=== PATIENT | male | born 1965 | race Caucasian/White ===

== ENCOUNTER 2019-08-17 07:09 | Outpatient (RCR) | payer BC ==
[2019-08-15 08:52] VITALS: BP 138/68
[2019-08-15 09:22] LABS: BASOPHILS % (AUTO) 0 % (0-10); EOSINOPHILS # (AUTO) 0.1 10^3/uL (0.0-0.3); EOSINOPHILS % (AUTO) 2 % (0-10); HEMATOCRIT 44 % (40-54); HEMOGLOBIN 15.2 G/DL (13.3-17.7); LYMPHOCYTES # (AUTO) 1.5 X 10^3 (1.0-4.0); LYMPHOCYTES % (AUTO) 27 % (12-44); MEAN CORPUSCULAR HEMOGLOBIN 30 PG (25-34); MEAN CORPUSCULAR HGB CONC 35 G/DL (32-36); MEAN CORPUSCULAR VOLUME 86 FL (80-99); MEAN PLATELET VOLUME 9.3 FL (7.4-10.4); MONOCYTES # (AUTO) 0.6 X 10^3 (0.0-1.0); MONOCYTES % (AUTO) 11 % (0-12); NEUTROPHILS # (AUTO) 3.3 X 10^3 (1.8-7.8); NEUTROPHILS % (AUTO) 60 % (42-75); PLATELET COUNT 181 10^3/uL (130-400); RED CELL DISTRIBUTION WIDTH 13.8 % (10.0-14.5); WHITE BLOOD COUNT 5.5 10^3/uL (4.3-11.0)
[2019-08-15 09:24] LABS: BILIRUBIN,URINE NEGATIVE (NEGATIVE); CLARITY,URINE CLEAR; COLOR,URINE YELLOW; GLUCOSE, URINE (UA) NEGATIVE (NEGATIVE); KETONES,URINE NEGATIVE (NEGATIVE); LEUKOCYTE ESTERASE ,URINE NEGATIVE (NEGATIVE); NITRITE,URINE NEGATIVE (NEGATIVE); PH,URINE 5.5 (5-9); PROTEIN,URINE NEGATIVE (NEGATIVE)
[2019-08-15 09:29] LABS: BACTERIA,URINE NEGATIVE /HPF
[2019-08-15 09:34] LABS: ALBUMIN 4.5 GM/DL (3.2-4.5); CHLORIDE 105 MMOL/L (98-107); POTASSIUM 4.5 MMOL/L (3.6-5.0)
[2019-08-15 09:35] LABS: SODIUM 139 MMOL/L (135-145)
[2019-08-15 09:36] LABS: CALCIUM 9.4 MG/DL (8.5-10.1)
[2019-08-15 09:37] LABS: GLUCOSE 114 MG/DL (70-105); INR 0.9 (0.8-1.4); PROTHROMBIN TIME PATIENT 12.5 SEC (12.2-14.7); TOTAL PROTEIN 7.1 GM/DL (6.4-8.2)
[2019-08-15 09:38] LABS: CARBON DIOXIDE 24 MMOL/L (21-32)
[2019-08-15 09:39] LABS: BILIRUBIN,TOTAL 0.5 MG/DL (0.1-1.0)
[2019-08-15 09:40] LABS: ALKALINE PHOSPHATASE 58 U/L (40-136); CREATININE SERUM 1.05 MG/DL (0.60-1.30); GFR ESTIMATED > 60
[2019-08-15 09:41] LABS: BUN/CREATININE RATIO 14
[2019-08-15 09:43] LABS: ALANINE AMINOTRANSFERASE 40 U/L (0-55)
[2019-08-15 09:49] LABS: ERYTHROCYTE SEDIMENTATION RATE 1 MM/HR (0-30)
--- NOTE | 2019-08-15 09:52 | Diagnostic Imaging Report ---
EXAMINATION: PA and lateral chest at 9:38 AM. INDICATION: Preop total knee. COMPARISON: There are no prior studies available for comparison. FINDINGS: The heart size is within normal limits. The lungs are clear. There is no evidence for failure, pneumonia, or pleural effusion. The mediastinum is not widened. The osseous structures are intact. IMPRESSION: There is no evidence for active disease. Dictated by: Dictated on workstation # [id number]
[~2019-08-17] VITALS: Ht 185 cm; Wt 124.5 kg
[~2019-08-17 07:09] MED LIST: LISI10TA2 PO; MULT-1136 PO; OMEG1CAP24 PO; ZINC50TA51 PO
== END 2019-08-17 15:48 | disposition home or self-care (01) ==
LOC: PREOP 07:09
PROVIDERS: ATTEND Orthopaedic Surgery
DX: Z01.810 Encounter for preprocedural cardiovascular examination (principal); Z01.811 Encounter for preprocedural respiratory examination; Z01.812 Encounter for preprocedural laboratory examination; Z11.2 Encounter for screening for other bacterial diseases; Z11.59 Encounter for screening for other viral diseases; M17.12 Unilateral primary osteoarthritis, left knee; R53.83 Other fatigue
CPT/HCPCS: 36415; 71046; 80053; 81000; 85025; 85610; 85652; 86850; 86900; 86901; 87081; 87635; 93005

== ENCOUNTER 2019-08-22 07:10 | Inpatient (IN) | payer BC ==
--- NOTE | 2019-08-13 13:03 | HISTORY AND PHYSICAL ---
DATE OF SERVICE: This will be for inpatient admission on 08/22/2019. The patient will require regular inpatient admission due to comorbidities, need for physical therapy, need for pain management and gait abnormalities. HISTORY OF PRESENT ILLNESS: The patient is a 54-year-old gentleman with complaints of progressively worsening left knee pain. He reports long-standing progressive symptoms. He has undergone treatment with arthroscopies as well as injections. He reports activity limitations because of the knee. He reports that the pain is interfering with his work activities as well as his activities of daily living. He also began to experience some contralateral hip pain due to the way he ambulates on his left knee. REVIEW OF SYSTEMS: No chest pain, no shortness of breath, no dysuria. PAST MEDICAL HISTORY: Unremarkable. PAST SURGICAL HISTORY: Bilateral knee arthroscopies and appendectomy. FAMILY HISTORY: Noncontributory. PRIMARY CARE PROVIDER: Dr. Siddiqui. MEDICATIONS: Zinc and fish oil. ALLERGIES: PENICILLIN. SOCIAL HISTORY: The patient formally chewed tobacco and he reports social alcohol consumption. RADIOGRAPHS: Reveal complete loss of medial joint space with moderate patellofemoral joint space narrowing. IMPRESSION: Severe left knee osteoarthritis. PHYSICAL EXAMINATION: GENERAL: The patient ambulates with an antalgic gait on the left. HEENT: Normocephalic, atraumatic. Pupils are equal, round, reactive to light. Oropharynx is clear. NECK: Supple, no lymphadenopathy. LUNGS: Clear to auscultation bilaterally. HEART: Regular rate and rhythm. ABDOMEN: Soft, nontender, nondistended. EXTREMITIES: The left knee demonstrates varus alignment. He is tender along his medial joint line, has pain medially with Eladia's. Range of motion 0/4/120. There is no varus valgus laxity. Negative anterior and posterior drawer. Negative straight leg raise. There is a moderate effusion noted with no erythema or warmth. IMPRESSION: Severe left knee osteoarthritis, unresponsive to conservative measures. PLAN: Left total knee arthroplasty. The risks, benefits, options, ramifications and recovery have been discussed at length with the patient. He understands and wishes to proceed. Job ID: [id number] DocumentID: [id number] Dictated Date: 08/13/2019 10:54:33 [employer] Date: 08/13/2019 12:03:04 Dictated By: FELY MUNOZ MD
[~2019-08-22] VITALS: Ht 185 cm; Wt 124.5 kg
[2019-08-22] VITALS (16 sets, daily range): BP systolic 95–149; BP diastolic 59–87
--- OUTSIDE RECORDS SUMMARY | 2019-08-22 07:16 | XMS REPORT | Clinical Summary ---
Author Author Maikel, Jose Luis Leigh [facility] Address Unknown Phone Unavailable Allergies, Adverse Reactions, Alerts Allergy Name Reaction Description Start Date Severity Status Pr ovider PCN Critical Active Kamlesh salinas DIESEL LOCOMOTIVE ENGINEER Conditions or Problems Problem Name Problem Code Onset Date Status Entry Date Provider Comment Standard Description Annotate Bronchitis 490 Resolved Chin Siddiqui MD Bronchitis, not specified as acute or chronic BMI 36-36.9 Active Chin Siddiqui MD Body Mass Index 36.0-36.9, adult Obesity Class II (BMI 35-39.9) 278.00 Active 05/29 Chin Siddiqui MD Obesity, unspecified Preoperative examination V72.84 Active Mar silvia Siddiqui MD Preoperative examination, unspecified Health screening V70.0 Active Chin Milian Routine general medical examination at a health care facility Elevated blood pressure without diagnosis of hypertension 796.2 Active Chin Siddiqui MD Elevated bloo d pressure reading without diagnosis of hypertension Bronchitis ICD-490 Inactive Chin Siddiqui MD 202 Medication List Medication Instructions Start Date Stop Date Generic Name NDC Status Provider Patient Instruction FISH OIL 1000 MG ORAL CAPSULE 1 po qd OMEGA- 3 FATTY ACIDS 75760506496 Active Chin Siddiqui MD Active GUAIFENESIN DM 400-20 MG ORAL TABLET 1 pill by mouth t wice daily, if needed for cough DEXTROMETHORPHAN-GUAIFENESIN 28978009230 No Longer Active Chin Siddiqui MD Active PREDNISONE 20 MG ORAL TABLET 2 tabs daily for 3 days, 1 tab daily for 3 days, 1/2 tab daily for 2 days PREDNISONE 88348380461 No Longer Active Kamlesh Rothman DIESEL LOCOMOTIVE ENGINEER Active AZITHROMYCIN 250 MG ORAL TABLET 2 po qd x 1 day, then 1 po q d x 4 days AZITHROMYCIN 85506503946 No Longer Active Rudyllina Manju balaji DIESEL LOCOMOTIVE ENGINEER Active GUAIFENESIN DM 400-20 MG ORAL TABLET 1 pill by mouth t wice daily, if needed for cough GUAIFENESIN DM 400-20 MG ORAL TABLET DEXTROMETHORPHAN-GUAIFENESIN Inactive AZITHROMYCIN 250 MG ORAL TABLET 2 po qd x 1 day, then 1 po q d x 4 days AZITHROMYCIN 250 MG ORAL TABLET [id number] AZITHROMY YAIMA Inactive PREDNISONE 20 MG ORAL TABLET 2 tabs daily for 3 days, 1 tab daily for 3 days, 1/2 tab daily for 2 days PREDNISONE 20 MG ORAL T ABLET [id number] PREDNISONE Inactive Vital Signs Date Name Value Unit Range Description blood pressure, diastolic, repeated by physician 86 BP durant blood pressure, diastolic 86 mm[Hg] BP durant blood pressure, systolic, repeated by physician 160 BP sys blood pressure, systolic 160 mm[Hg] BP sys height E&M 73 [in_us] Bdy height pulse rate E&M 81 /min Heart rate temperature E&M 98.4 [degF] Body temp erature weight E&M 279 [lb_av] Weight Measure d Diagnostic Results Date Name Value Unit Range Description Office Visit: surgery clearance 304 - Ch emistry HDL cholesterol, serum, target level 40 mg/dL cholesterol, target level 200 mg/dL triglyceride, target level 150 mg/dL Encounters Code Encounter Date Provider Facility CPT-66122 Level 3 Est. Patient 14:54:42 TECHNICAL DOCUMENTATION SPECIALIST Chin Siddiqui MD [facility] CPT-07497 Level 3 Est. Patient 10:14:09 TECHNICAL DOCUMENTATION SPECIALIST Kamlesh whittaker APRN [facility]
--- OUTSIDE RECORDS SUMMARY | 2019-08-22 07:16 | XMS REPORT | Clinical Summary ---
Author Author Jose Luis Ko [employer] Address Unknown Phone Unavailable Allergies, Adverse Reactions, Alerts Allergy Name Reaction Description Start Date Severity Status Pr ovider PCN Critical Active Kamlesh salinas UNDERWATER HUNTER TRAPPER Conditions or Problems Problem Name Problem Code [...] Generic Name NDC Status Provider Patient Instruction LISINOPRIL 10 MG ORAL TABLET 1 po qd LISINOPRIL 12168 559819 Active Chin Siddiqui MD Active FISH OIL 1000 MG ORAL CAPSULE 1 po qd OMEGA- 3 FATTY ACIDS 88150325598 Active Chin Siddiqui MD Active GUAIFENESIN DM 400-20 MG ORAL TABLET 1 pill by mouth t wice daily, if needed for cough DEXTROMETHORPHAN-GUAIFENESIN 03084656479 No Longer Active Chin Siddiqui MD Active PREDNISONE 20 MG ORAL TABLET 2 tabs daily for 3 days, 1 tab daily for 3 days, 1/2 tab daily for 2 days PREDNISONE 16191159857 No Longer Active Kamlesh Rothman UNDERWATER HUNTER TRAPPER Active AZITHROMYCIN 250 MG ORAL TABLET 2 po qd x 1 day, then 1 po q d x 4 days AZITHROMYCIN 01998320501 No Longer Active Rudyllina Manju balaji UNDERWATER HUNTER TRAPPER Active GUAIFENESIN DM 400-20 MG ORAL TABLET 1 pill by mouth t wice daily, if needed for cough GUAIFENESIN DM 400-20 MG ORAL TABLET DEXTROMETHORPHAN-GUAIFENESIN Inactive AZITHROMYCIN 250 MG ORAL TABLET 2 po qd x 1 day, then 1 po q d x 4 days AZITHROMYCIN 250 MG ORAL TABLET 486111 AZITHROMY YAIMA Inactive PREDNISONE 20 MG ORAL TABLET 2 tabs daily for 3 days, 1 tab daily for 3 days, 1/2 tab daily for 2 days PREDNISONE 20 MG ORAL T ABLET [id number] PREDNISONE Inactive Vital Signs Date Name Value [...] mg/dL Encounters Code Encounter Date Provider Facility CPT-94512 Level 3 Est. Patient 14:54:42 BRAKES INSPECTOR Chin Siddiqui MD [facility] CPT-78684 Level 3 Est. Patient 10:14:09 BRAKES INSPECTOR Kamlesh whittaker [facility]
--- OUTSIDE RECORDS SUMMARY | 2019-08-22 07:16 | XMS REPORT | Clinical Summary ---
Author Author Maikel, Jose Luis Leigh [facility] Address Unknown Phone Unavailable Allergies, Adverse Reactions, Alerts Allergy Name Reaction Description Start Date Severity Status Pr ovider PCN Critical Active Jillina Manjuzel l SUPERVISOR ASSEMBLY AND PACKING Conditions or Problems Problem Name Problem Code Onset Date Status Entry Date Provider Comment Standard Description Annotate Bronchitis 490 Active Jillina Frazell SUPERVISOR ASSEMBLY AND PACKING Bronchitis, not specified as acute or chronic Medication List Medication Instructions Start Date Stop Date Generic Name NDC Status Provider Patient Instruction GUAIFENESIN DM 400-20 MG ORAL TABLET 1 pill by mouth t wice daily, if needed for cough DEXTROMETHORPHAN-GUAIFENESIN 08802363924 Active Jillina Frazell SUPERVISOR ASSEMBLY AND PACKING Active PREDNISONE 20 MG ORAL TABLET 2 tabs daily for 3 days, 1 tab daily for 3 days, 1/2 tab daily for 2 days PREDNISONE 43392981869 Active Jillina Frazell SUPERVISOR ASSEMBLY AND PACKING Active AZITHROMYCIN 250 MG ORAL TABLET 2 po qd x 1 day, then 1 po q d x 4 days AZITHROMYCIN 76319615010 Active Jillina Frazell SUPERVISOR ASSEMBLY AND PACKING Active Vital Signs Date Name Value Unit Range Description blood pressure, diastolic 91 mm[Hg] BP durant blood pressure, systolic 127 mm[Hg] BP sys height E&M 73 [in_us] Bdy height pulse rate E&M 81 /min Heart rate temperature E&M 98.6 [degF] Body temp erature weight E&M 256 [lb_av] Weight Measure d Diagnostic Results Date Name Value Unit Range Description Lab Report: JOVANNI INFLUENZA A/B - [place] logy rapid flu test Negative Negative Encounters Code Encounter Date Provider Facility CPT-80445 Level 3 Est. Patient 10:14:09 STANDARD MACHINE STITCHER Kamlesh whittaker SUPERVISOR ASSEMBLY AND PACKING [facility]
--- OUTSIDE RECORDS SUMMARY | 2019-08-22 07:16 | XMS REPORT | Clinical Summary ---
Author Author Jose Luis Ko [employer] Address Unknown Phone Unavailable Allergies, Adverse Reactions, Alerts Allergy Name Reaction Description Start Date Severity Status Pr ovider PCN Critical Active Kamlesh salinas GASOLINE FINISHER Conditions or Problems Problem Name Problem Code [...] 1 po qd OMEGA- 3 FATTY ACIDS 04841707223 Active Chin Siddiqui MD Active GUAIFENESIN DM 400-20 MG ORAL TABLET 1 pill by mouth t wice daily, if needed for cough DEXTROMETHORPHAN-GUAIFENESIN 36915683542 No Longer Active Chin Siddiqui MD Active PREDNISONE 20 MG ORAL TABLET 2 tabs daily for 3 days, 1 tab daily for 3 days, 1/2 tab daily for 2 days PREDNISONE 70872993764 No Longer Active Kamlesh Rothman GASOLINE FINISHER Active AZITHROMYCIN 250 MG ORAL TABLET 2 po qd x 1 day, then 1 po q d x 4 days AZITHROMYCIN 95287563217 No Longer Active Rudyllina Manju balaji GASOLINE FINISHER Active GUAIFENESIN DM 400-20 MG ORAL TABLET 1 pill by mouth t wice daily, if needed for cough GUAIFENESIN DM 400-20 MG ORAL TABLET DEXTROMETHORPHAN-GUAIFENESIN Inactive AZITHROMYCIN 250 MG ORAL TABLET 2 po qd x 1 day, then 1 po q d x 4 days AZITHROMYCIN 250 MG ORAL TABLET 405430 AZITHROMY YAIMA Inactive PREDNISONE 20 MG ORAL TABLET 2 tabs daily for 3 days, 1 tab daily for 3 days, 1/2 tab daily for 2 days PREDNISONE 20 MG ORAL T ABLET [id number] PREDNISONE Inactive Vital Signs Date Name Value [...] mg/dL Encounters Code Encounter Date Provider Facility CPT-61567 Level 3 Est. Patient 14:54:42 INSIDE SALES MANAGER Chin Siddiqui MD [facility] CPT-13717 Level 3 Est. Patient 10:14:09 INSIDE SALES MANAGER Kamlesh whittaker APRN [facility]
--- OUTSIDE RECORDS SUMMARY | 2019-08-22 07:16 | XMS REPORT | Clinical Summary ---
Author Author Jose Luis Ko [facility] Address Unknown Phone Unavailable Allergies, Adverse Reactions, Alerts Allergy Name Reaction Description Start Date Severity Status Pr ovider PCN Critical Active Jillina Manjuzel l FREIGHT HUSTLER Conditions or Problems Problem Name Problem Code Onset Date Status Entry Date Provider Comment Standard Description Annotate Bronchitis 490 Active Jillina Frazell FREIGHT HUSTLER Bronchitis, not specified as acute or chronic Medication List Medication Instructions Start Date Stop Date Generic Name NDC Status Provider Patient Instruction GUAIFENESIN DM 400-20 MG ORAL TABLET 1 pill by mouth t wice daily, if needed for cough DEXTROMETHORPHAN-GUAIFENESIN 21617344989 Active Jillina Frazell FREIGHT HUSTLER Active PREDNISONE 20 MG ORAL TABLET 2 tabs daily for 3 days, 1 tab daily for 3 days, 1/2 tab daily for 2 days PREDNISONE 44914093874 Active Jillina Frazell FREIGHT HUSTLER Active AZITHROMYCIN 250 MG ORAL TABLET 2 po qd x 1 day, then 1 po q d x 4 days AZITHROMYCIN 93598533993 No Longer Active Jillina Fra balaji FREIGHT HUSTLER Active AZITHROMYCIN 250 MG ORAL TABLET 2 po qd x 1 day, then 1 po q d x 4 days AZITHROMYCIN 250 MG ORAL TABLET 526987 AZITHROMY YAIMA Inactive Vital Signs Date Name Value Unit [...] Negative Encounters Code Encounter Date Provider Facility CPT-00359 Level 3 Est. Patient 10:14:09 MANAGER HOSPITALITY Kamlesh whittaker [facility]
--- OUTSIDE RECORDS SUMMARY | 2019-08-22 07:16 | XMS REPORT | Clinical Summary ---
Author Author Jose Luis Ko [facility] Address Unknown Phone Unavailable Allergies, Adverse Reactions, Alerts Allergy Name Reaction Description Start Date Severity Status Pr ovider PCN Critical Active Kamlesh Thornton l SAMMY Conditions or Problems Problem Name Problem Code Onset Date Status Entry Date Provider Comment Standard Description Annotate Bronchitis 490 Active Kamlesh Rothman APRN Bronchitis, not specified as acute or chronic Medication List Medication Instructions Start Date Stop Date Generic Name NDC Status Provider Patient Instruction GUAIFENESIN DM 400-20 MG ORAL TABLET 1 pill by mouth t wice daily, if needed for cough DEXTROMETHORPHAN-GUAIFENESIN 04605155598 Active Kamlesh Rothman APRN Active PREDNISONE 20 MG ORAL TABLET 2 tabs daily for 3 days, 1 tab daily for 3 days, 1/2 tab daily for 2 days PREDNISONE 66142367202 Active Maryina Frayuril BLEACH MIXER Active AZITHROMYCIN 250 MG ORAL TABLET 2 po qd x 1 day, then 1 po q d x 4 days AZITHROMYCIN 88539878704 Active Kamlesh Thorntonl BLEACH MIXER Active Vital Signs Date Name Value Unit Range Description blood pressure, diastolic 91 mm[Hg] BP durant blood pressure, systolic 127 mm[Hg] BP sys height E&M 73 [in_us] Bdy height pulse rate E&M 81 /min Heart rate temperature E&M 98.6 [degF] Body temp erature weight E&M 256 [lb_av] Weight Measure d Encounters Code Encounter Date Provider Facility CPT-29286 Level 3 Est. Patient 10:14:09 CONRADO whittaker APRN [facility]
--- OUTSIDE RECORDS SUMMARY | 2019-08-22 07:16 | XMS REPORT | Clinical Summary ---
Author Author Jose Luis Ko [facility] Address Unknown Phone Unavailable Allergies, Adverse Reactions, Alerts Allergy Name Reaction Description Start Date Severity Status Pr ovider PCN Critical Active Jillina Manjuzel l YARN BLEACHING MACHINE OPERATOR Conditions or Problems Problem Name Problem Code Onset Date Status Entry Date Provider Comment Standard Description Annotate Bronchitis 490 Active Jillina Frazell YARN BLEACHING MACHINE OPERATOR Bronchitis, not specified as acute or chronic Medication List Medication Instructions Start Date Stop Date Generic Name NDC Status Provider Patient Instruction GUAIFENESIN DM 400-20 MG ORAL TABLET 1 pill by mouth t wice daily, if needed for cough DEXTROMETHORPHAN-GUAIFENESIN 02160995659 Active Jillina Frazell YARN BLEACHING MACHINE OPERATOR Active PREDNISONE 20 MG ORAL TABLET 2 tabs daily for 3 days, 1 tab daily for 3 days, 1/2 tab daily for 2 days PREDNISONE 01237946478 Active Jillina Frazell YARN BLEACHING MACHINE OPERATOR Active AZITHROMYCIN 250 MG ORAL TABLET 2 po qd x 1 day, then 1 po q d x 4 days AZITHROMYCIN 59811488067 Active Jillina Frazell YARN BLEACHING MACHINE OPERATOR Active Vital Signs Date Name Value Unit [...] Negative Encounters Code Encounter Date Provider Facility CPT-35533 Level 3 Est. Patient 10:14:09 CONTINUOUS IMPROVEMENT LEAD Kamlesh whittaker YARN BLEACHING MACHINE OPERATOR [facility]
--- OUTSIDE RECORDS SUMMARY | 2019-08-22 07:16 | XMS REPORT | Clinical Summary ---
Author Author Jose Luis Ko [employer] Address Unknown Phone Unavailable Allergies, Adverse Reactions, Alerts Allergy Name Reaction Description Start Date Severity Status Pr ovider PCN Critical Active Kamlesh salinas RESTRICTIVE PREPARATION OPERATOR Conditions or Problems Problem Name Problem [...] MG ORAL TABLET 1 po qd LISINOPRIL 42332 189680 Active Chin Siddiqui MD Active FISH OIL 1000 MG ORAL CAPSULE 1 po qd OMEGA- 3 FATTY ACIDS 46826760952 Active Chin Siddiqui MD Active GUAIFENESIN DM 400-20 MG ORAL TABLET 1 pill by mouth t wice daily, if needed for cough DEXTROMETHORPHAN-GUAIFENESIN 24020790292 No Longer Active Chin Siddiqui MD Active PREDNISONE 20 MG ORAL TABLET 2 tabs daily for 3 days, 1 tab daily for 3 days, 1/2 tab daily for 2 days PREDNISONE 67591611607 No Longer Active Kamlesh Rothman RESTRICTIVE PREPARATION OPERATOR Active AZITHROMYCIN 250 MG ORAL TABLET 2 po qd x 1 day, then 1 po q d x 4 days AZITHROMYCIN 69426135583 No Longer Active Rudyllina Manju balaji RESTRICTIVE PREPARATION OPERATOR Active GUAIFENESIN DM 400-20 MG ORAL TABLET 1 pill by mouth t wice daily, if needed for cough GUAIFENESIN DM 400-20 MG ORAL TABLET DEXTROMETHORPHAN-GUAIFENESIN Inactive AZITHROMYCIN 250 MG ORAL TABLET 2 po qd x 1 day, then 1 po q d x 4 days AZITHROMYCIN 250 MG ORAL TABLET 260903 AZITHROMY YAIMA Inactive PREDNISONE 20 MG ORAL TABLET 2 tabs daily for 3 days, 1 tab daily for 3 days, 1/2 tab daily for 2 days PREDNISONE 20 MG ORAL T ABLET 636030 PREDNISONE Inactive Vital Signs Date Name Value [...] mg/dL Encounters Code Encounter Date Provider Facility CPT-95559 Level 3 Est. Patient 14:54:42 AMMONIUM NITRATE CRYSTALLIZER Chin Siddiqui MD [facility] CPT-58981 Level 3 Est. Patient 10:14:09 AMMONIUM NITRATE CRYSTALLIZER Kamlesh whittaker [facility]
--- OUTSIDE RECORDS SUMMARY | 2019-08-22 07:16 | XMS REPORT | Clinical Summary ---
Author Author Jose Luis Ko [facility] [employer] Address Unknown Phone Unavailable Allergies, Adverse Reactions, Alerts Allergy Name Reaction Description Start Date Severity Status Pr ovider PCN Critical Active Jillina Manjuzel l HOT BILLET SHEAR OPERATOR Conditions or Problems Problem Name Problem Code Onset Date Status Entry Date Provider Comment Standard Description Annotate Bronchitis 490 Active Jillina Frazell HOT BILLET SHEAR OPERATOR Bronchitis, not specified as acute or chronic Medication List Medication Instructions Start Date Stop Date Generic Name NDC Status Provider Patient Instruction GUAIFENESIN DM 400-20 MG ORAL TABLET 1 pill by mouth t wice daily, if needed for cough DEXTROMETHORPHAN-GUAIFENESIN 21228495431 Active Jillina Frazell HOT BILLET SHEAR OPERATOR Active PREDNISONE 20 MG ORAL TABLET 2 tabs daily for 3 days, 1 tab daily for 3 days, 1/2 tab daily for 2 days PREDNISONE 23122947650 Active Jillina Frazell HOT BILLET SHEAR OPERATOR Active AZITHROMYCIN 250 MG ORAL TABLET 2 po qd x 1 day, then 1 po q d x 4 days AZITHROMYCIN 22855293147 Active Jillina Frazell HOT BILLET SHEAR OPERATOR Active Vital Signs Date Name Value [...] Negative Encounters Code Encounter Date Provider Facility CPT-80321 Level 3 Est. Patient 10:14:09 SEISMOLOGY TEACHER Kamlesh whittaker HOT BILLET SHEAR OPERATOR [facility]
--- OUTSIDE RECORDS SUMMARY | 2019-08-22 07:16 | XMS REPORT | Clinical Summary ---
Author Author Jose Luis Ko [employer] Address Unknown Phone Unavailable Allergies, Adverse Reactions, Alerts Allergy Name Reaction Description Start Date Severity Status Pr ovider PCN Critical Active Kamlesh salinas WET MILLING WHEEL OPERATOR Conditions or Problems Problem Name Problem [...] MG ORAL TABLET 1 po qd LISINOPRIL 04535 999015 Active Chin Siddiqui MD Active FISH OIL 1000 MG ORAL CAPSULE 1 po qd OMEGA- 3 FATTY ACIDS 77006415960 Active Chin Siddiqui MD Active GUAIFENESIN DM 400-20 MG ORAL TABLET 1 pill by mouth t wice daily, if needed for cough DEXTROMETHORPHAN-GUAIFENESIN 14608515428 No Longer Active Chin Siddiqui MD Active PREDNISONE 20 MG ORAL TABLET 2 tabs daily for 3 days, 1 tab daily for 3 days, 1/2 tab daily for 2 days PREDNISONE 71227677977 No Longer Active Kamlesh Rothman WET MILLING WHEEL OPERATOR Active AZITHROMYCIN 250 MG ORAL TABLET 2 po qd x 1 day, then 1 po q d x 4 days AZITHROMYCIN 60573722569 No Longer Active Rudyllina Manju balaji WET MILLING WHEEL OPERATOR Active GUAIFENESIN DM 400-20 MG ORAL TABLET 1 pill by mouth t wice daily, if needed for cough GUAIFENESIN DM 400-20 MG ORAL TABLET DEXTROMETHORPHAN-GUAIFENESIN Inactive AZITHROMYCIN 250 MG ORAL TABLET 2 po qd x 1 day, then 1 po q d x 4 days AZITHROMYCIN 250 MG ORAL TABLET 416263 AZITHROMY YAIMA Inactive PREDNISONE 20 MG ORAL TABLET 2 tabs daily for 3 days, 1 tab daily for 3 days, 1/2 tab daily for 2 days PREDNISONE 20 MG ORAL T ABLET 517811 PREDNISONE Inactive Vital Signs Date Name Value [...] mg/dL Encounters Code Encounter Date Provider Facility CPT-40500 Level 3 Est. Patient 14:54:42 EXECUTIVE ADMINISTRATOR Chin Siddiqui MD [facility] CPT-69898 Level 3 Est. Patient 10:14:09 EXECUTIVE ADMINISTRATOR Kamlesh whittaker [facility]
--- OUTSIDE RECORDS SUMMARY | 2019-08-22 07:16 | XMS REPORT | Clinical Summary ---
Author Author Jose Luis Ko [facility] Address Unknown Phone Unavailable Allergies, Adverse Reactions, Alerts Allergy Name Reaction Description Start Date Severity Status Pr ovider PCN Critical Active Jijingina Manjuzel l GLUING PRESSMAN Conditions or Problems Problem Name Problem Code Onset Date Status Entry Date Provider Comment Standard Description Annotate Bronchitis 490 Active Jillina Frazell GLUING PRESSMAN Bronchitis, not specified as acute or chronic Medication List Medication Instructions Start Date Stop Date Generic Name NDC Status Provider Patient Instruction GUAIFENESIN DM 400-20 MG ORAL TABLET 1 pill by mouth t wice daily, if needed for cough DEXTROMETHORPHAN-GUAIFENESIN 05781198378 Active Jillina Frazell GLUING PRESSMAN Active PREDNISONE 20 MG ORAL TABLET 2 tabs daily for 3 days, 1 tab daily for 3 days, 1/2 tab daily for 2 days PREDNISONE 96266654539 No Longer Active Jillina Frazell GLUING PRESSMAN Active AZITHROMYCIN 250 MG ORAL TABLET 2 po qd x 1 day, then 1 po q d x 4 days AZITHROMYCIN 72437709294 No Longer Active Jillina Fra balaji GLUING PRESSMAN Active AZITHROMYCIN 250 MG ORAL TABLET 2 po qd x 1 day, then 1 po q d x 4 days AZITHROMYCIN 250 MG ORAL TABLET 655820 AZITHROMY YAIMA Inactive PREDNISONE 20 MG ORAL TABLET 2 tabs daily for 3 days, 1 tab daily for 3 days, 1/2 tab daily for 2 days PREDNISONE 20 MG ORAL T ABLET 423198 PREDNISONE Inactive Vital Signs Date Name Value [...] Negative Encounters Code Encounter Date Provider Facility CPT-28744 Level 3 Est. Patient 10:14:09 LEAD ANDROID DEVELOPER Kamlesh whittaker [facility]
--- OUTSIDE RECORDS SUMMARY | 2019-08-22 07:16 | XMS REPORT | Clinical Summary ---
Author Author Jose Luis Ko [facility] Address Unknown Phone Unavailable Allergies, Adverse Reactions, Alerts Allergy Name Reaction Description Start Date Severity Status Pr ovider PCN Critical Active Jillina Manjuzel l SMOKING PIPE MAKER Conditions or Problems Problem Name Problem Code Onset Date Status Entry Date Provider Comment Standard Description Annotate Bronchitis 490 Active Jillina Frazell SMOKING PIPE MAKER Bronchitis, not specified as acute or chronic Medication List Medication Instructions Start Date Stop Date Generic Name NDC Status Provider Patient Instruction GUAIFENESIN DM 400-20 MG ORAL TABLET 1 pill by mouth t wice daily, if needed for cough DEXTROMETHORPHAN-GUAIFENESIN [id number] Active Jillina Frazell SMOKING PIPE MAKER Active PREDNISONE 20 MG ORAL TABLET 2 tabs daily for 3 days, 1 tab daily for 3 days, 1/2 tab daily for 2 days PREDNISONE 62231936524 Active Jillina Frazell SMOKING PIPE MAKER Active AZITHROMYCIN 250 MG ORAL TABLET 2 po qd x 1 day, then 1 po q d x 4 days AZITHROMYCIN 46278334963 No Longer Active Jillina Fra balaji SMOKING PIPE MAKER Active AZITHROMYCIN 250 MG ORAL TABLET 2 po qd x 1 day, then 1 po q d x 4 days AZITHROMYCIN 250 MG ORAL TABLET 214343 AZITHROMY YAIMA Inactive Vital Signs Date Name [...] Negative Encounters Code Encounter Date Provider Facility [id number] Level 3 Est. 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
--- OUTSIDE RECORDS SUMMARY | 2019-08-22 07:16 | XMS REPORT | Clinical Summary ---
Author Author Maikel, Jose Luis Leigh [facility] Address Unknown Phone Unavailable Allergies, Adverse Reactions, Alerts Allergy Name Reaction Description Start Date Severity Status Pr ovider PCN Critical Active Kamlesh salinas HELP DESK ADMINISTRATOR Conditions or Problems Problem Name Problem Code [...] 1 po qd OMEGA- 3 FATTY ACIDS [id number] Active Chin Siddiqui MD Active GUAIFENESIN DM 400-20 MG ORAL TABLET 1 pill by mouth t wice daily, if needed for cough DEXTROMETHORPHAN-GUAIFENESIN 58415416077 No Longer Active Chin Siddiqui MD Active PREDNISONE 20 MG ORAL TABLET 2 tabs daily for 3 days, 1 tab daily for 3 days, 1/2 tab daily for 2 days PREDNISONE 68802256913 No Longer Active Kamlesh Rothman HELP DESK ADMINISTRATOR Active AZITHROMYCIN 250 MG ORAL TABLET 2 po qd x 1 day, then 1 po q d x 4 days AZITHROMYCIN 32227169568 No Longer Active Rudyllina Manju balaji HELP DESK ADMINISTRATOR Active GUAIFENESIN DM 400-20 MG ORAL TABLET 1 pill by mouth t wice daily, if needed for cough GUAIFENESIN DM 400-20 MG ORAL TABLET DEXTROMETHORPHAN-GUAIFENESIN Inactive AZITHROMYCIN 250 MG ORAL TABLET 2 po qd x 1 day, then 1 po q d x 4 days AZITHROMYCIN 250 MG ORAL TABLET 886935 AZITHROMY YAIMA Inactive PREDNISONE 20 MG ORAL TABLET 2 tabs daily for 3 days, 1 tab daily for 3 days, 1/2 tab daily for 2 days PREDNISONE 20 MG ORAL T ABLET 534480 PREDNISONE Inactive Vital Signs Date Name Value [...] mg/dL Encounters Code Encounter Date Provider Facility [id number] Level 3 Est. Patient 14:54:42 PARTS PROFESSIONAL Chin Siddiqui MD [facility] CPT-30062 Level 3 Est. Patient 10:14:09 PARTS PROFESSIONAL Kamlesh whittaker APRN [facility]
--- OUTSIDE RECORDS SUMMARY | 2019-08-22 07:16 | XMS REPORT | Clinical Summary ---
Author Author Jose Luis Ko [employer] Address Unknown Phone Unavailable Allergies, Adverse Reactions, Alerts Allergy Name Reaction Description Start Date Severity Status Pr ovider PCN Critical Active Kamlesh salinas MATERIAL HANDLER FLOORPERSON Conditions or Problems Problem Name Problem Code [...] 1 po qd OMEGA- 3 FATTY ACIDS 41251159390 Active Chin Siddiqui MD Active GUAIFENESIN DM 400-20 MG ORAL TABLET 1 pill by mouth t wice daily, if needed for cough DEXTROMETHORPHAN-GUAIFENESIN 83653748659 No Longer Active Chin Siddiqui MD Active PREDNISONE 20 MG ORAL TABLET 2 tabs daily for 3 days, 1 tab daily for 3 days, 1/2 tab daily for 2 days PREDNISONE 55595553872 No Longer Active Kamlesh Rothman MATERIAL HANDLER FLOORPERSON Active AZITHROMYCIN 250 MG ORAL TABLET 2 po qd x 1 day, then 1 po q d x 4 days AZITHROMYCIN 16745494291 No Longer Active Rudyllina Manju balaji MATERIAL HANDLER FLOORPERSON Active GUAIFENESIN DM 400-20 MG ORAL TABLET 1 pill by mouth t wice daily, if needed for cough GUAIFENESIN DM 400-20 MG ORAL TABLET DEXTROMETHORPHAN-GUAIFENESIN Inactive AZITHROMYCIN 250 MG ORAL TABLET 2 po qd x 1 day, then 1 po q d x 4 days AZITHROMYCIN 250 MG ORAL TABLET 272950 AZITHROMY YAIMA Inactive PREDNISONE 20 MG ORAL TABLET 2 tabs daily for 3 days, 1 tab daily for 3 days, 1/2 tab daily for 2 days PREDNISONE 20 MG ORAL T ABLET 481425 PREDNISONE Inactive Vital Signs Date Name Value [...] mg/dL Encounters Code Encounter Date Provider Facility CPT-84322 Level 3 Est. Patient 14:54:42 PLANNING CONSULTANT Chin Siddiqui MD [facility] CPT-44246 Level 3 Est. Patient 10:14:09 PLANNING CONSULTANT Kamlesh whittaker APRN [facility]
--- OUTSIDE RECORDS SUMMARY | 2019-08-22 07:17 | XMS REPORT | Clinical Summary ---
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 LAW CLERK Conditions or Problems Problem Name Problem Code Onset Date Status Entry Date Provider Comment Standard Description Annotate Bronchitis 490 Active Jillina Frazell FEDERAL APPELLATE LAW CLERK Bronchitis, not specified as acute or chronic Medication List Medication Instructions Start Date Stop Date Generic Name NDC Status Provider Patient Instruction GUAIFENESIN DM 400-20 MG ORAL TABLET 1 pill by mouth t wice daily, if needed for cough DEXTROMETHORPHAN-GUAIFENESIN 66612561480 Active Jillina Frazell FEDERAL APPELLATE LAW CLERK Active PREDNISONE 20 MG ORAL TABLET 2 tabs daily for 3 days, 1 tab daily for 3 days, 1/2 tab daily for 2 days PREDNISONE 79722978475 Active Jillina Frazell FEDERAL APPELLATE LAW CLERK Active AZITHROMYCIN 250 MG ORAL TABLET 2 po qd x 1 day, then 1 po q d x 4 days AZITHROMYCIN 06032856086 Active Jillina Frazell FEDERAL APPELLATE LAW CLERK Active Vital Signs Date Name Value Unit [...] Negative Encounters Code Encounter Date Provider Facility CPT-18265 Level 3 Est. 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
--- OUTSIDE RECORDS SUMMARY | 2019-08-22 07:17 | XMS REPORT ---
Author Jose Luis Roman Organization [facility] Address [address] [place], [place] [address] Care Team Providers Care Rate Inserter Name Role Phone Kamlesh Rothman PCP Unavailable Allergies and Adverse Reactions Name Reaction Notes PENICILLINS Plan of Treatment Not available. Medications Active Name Start Date Estimated Completion Date SIG Co mments zinc 50 mg oral tablet take 1 tablet by o ral route Fish Oil oral simvastatin 10 mg oral tablet 11/28/2018 05/27/2019 ta ke 1 tablet (10 mg) by oral route once daily in the evening for 90 days phentermine 37.5 mg oral tablet 01/02/2019 take 1/2 to 1 tab po q am, 30 min prior to breakfast Name Start Date Expiration Date SIG Comments clindamycin HCl 300 mg oral capsule 11/07/2018 11/14/2018 take 1 capsule (300 mg) by oral route 2 times per day for 7 days azithromycin 250 mg oral tablet 01/02/2019 01/07/2019 take 2 tablets (500 mg) by oral route once daily for 1 day then 1 tablet (250 mg) by oral route once daily for 4 days Problem List Not available. Vital Signs Date Time BP-Sys(mm[Hg] BP-Yuliet(mm[Hg]) HR(bpm) RR(rpm) Temp WT HT HC BMI BSA BMI Percentile O2 Sat(%) 01/02/2019 8:58:00 AM 138 mm[Hg] 92 mm[Hg] 76 {beats}/min 16 rpm 97.7 F 265.125 lbs 73 in 34.9787 kg/m2 2.4888 m2 97 % 11/07/2018 6:02:00 PM 148 mm[Hg] 82 mm[Hg] 78 {beats}/min 16 rpm 99 F 277 lbs 73 in 36.55 kg/m2 2.54 m2 95 % Social History Name Description Comments Tobacco History of Procedures Date Ordered Description Order Status 10/30/2018 12:00 AM THER/PROPH/DIAG INJ SC/IM Reviewed 10/30/2018 12:00 AM TDAP VACCINE 7 YRS/> IM Reviewed 12/01/2018 12:00 AM GLYCOSYLATED HEMOGLOBIN TEST Returned 12/01/2018 12:00 AM COMPREHEN METABOLIC PANEL Returned 12/01/2018 12:00 AM ROUTINE VENIPUNCTURE Reviewed 11/25/2018 12:00 AM ROUTINE VENIPUNCTURE Reviewed 11/25/2018 12:00 AM COMPLETE CBC W/AUTO DIFF WBC Returned 11/25/2018 12:00 AM COMPREHEN METABOLIC PANEL Returned 11/25/2018 12:00 AM ASSAY OF TOTAL THYROXINE Returned 11/25/2018 12:00 AM ASSAY OF THYROID (T3 OR T4) Returned 11/25/2018 12:00 AM LIPID PANEL Returned 11/25/2018 12:00 AM URNLS DIP STICK/TABLET RGNT AUTO W/O ALON ROSCOPY Returned 01/13/2019 12:00 AM FLU VAC NO PRSV 4 HECTOR 3 YRS+ Reviewed 01/13/2019 12:00 AM THER/PROPH/DIAG INJ SC/IM Reviewed Results Summary Not available. 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 07 2018 6:09PM Obesity Nov 25 2018 7:44AM Weight loss counseling, encounter for Nov 25 2018 7:44AM Routine adult health maintenance Nov 25 2018 7:44AM Hyperglycemia Nov 27 2018 8:36PM Creatinine elevation Nov 27 2018 8:36PM HTN (hypertension) Dec 01 2018 7:00PM Hyperlipidemia Dec 01 2018 7:00PM Obesity Dec 01 2018 7:00PM URI (upper respiratory infection) Jan 02 2019 9:04AM Weight loss counseling, encounter for Jan 02 2019 9:04AM Flu Vaccine Jan 13 2019 10:49AM Payers Insurance Name Company Name Plan Name Plan Number Policy Number Papi cy Group Number [id number] N/ A History of Encounters Visit Date Visit Type Provider 01/13/2019 Nurse visit Kamlesh White PRN 01/02/2019 Office visit Kamlesh White PRN 12/01/2018 Laboratory Kamlesh White PRN 11/25/2018 Laboratory Kamlesh White PRN 11/07/2018 Office visit Bladimir Morales NP 10/30/2018 Nurse visit Kamlesh White PRN
--- OUTSIDE RECORDS SUMMARY | 2019-08-22 07:17 | XMS REPORT ---
Author Author Jose Luis Rothman Organization [facility] Address [address] [place], [place] [address] Care Team Providers Care Route Delivery Service Driver Name Role Phone Kamlesh Rothman PCP Unavailable Allergies and Adverse Reactions Name Reaction Notes PENICILLINS Plan of Treatment Planned Activity Comments Planned Date Planned Time Plan/Goal HGB A1C 11/27/2018 12:00 AM CMP 11/27/2018 12:00 AM Medications Active Name Start Date Estimated Completion Date SIG Co mments zinc 50 mg oral tablet take 1 tablet by o ral route Fish Oil oral Name Start Date Expiration Date SIG Comments clindamycin HCl 300 mg oral capsule 11/07/2018 11/14/2018 take 1 capsule (300 mg) by oral route 2 times per day for 7 days Problem List Not available. Vital Signs Date Time BP-Sys(mm[Hg] BP-Yuliet(mm[Hg]) HR(bpm) RR(rpm) Temp WT HT HC BMI BSA BMI Percentile O2 Sat(%) 11/07/2018 6:02:00 PM 148 mmHg 82 mmHg 78 bpm 16 rpm 99 F 277 lbs 73 in 36.5454 kg/m 2.5439 m 95 % Social History Name Description Comments Tobacco History of Procedures Date Ordered Description Order Status 10/30/2018 12:00 AM THER/PROPH/DIAG INJ SC/IM Reviewed 10/30/2018 12:00 AM TDAP VACCINE 7 YRS/> IM Reviewed 11/25/2018 12:00 AM ROUTINE VENIPUNCTURE Reviewed 11/25/2018 12:00 AM COMPLETE CBC W/AUTO DIFF WBC Returned 11/25/2018 12:00 AM COMPREHEN METABOLIC PANEL Returned 11/25/2018 12:00 AM ASSAY OF TOTAL THYROXINE Returned 11/25/2018 12:00 AM ASSAY OF THYROID (T3 OR T4) Returned 11/25/2018 12:00 AM LIPID PANEL Returned 11/25/2018 12:00 AM URNLS DIP STICK/TABLET RGNT AUTO W/O ALON ROSCOPY Returned 11/27/2018 12:00 AM ROUTINE VENIPUNCTURE Reviewed Results Summary Not available. 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
--- OUTSIDE RECORDS SUMMARY | 2019-08-22 07:17 | XMS REPORT ---
Author Author Jose Luis Rothman Organization [facility] Address [address] [place], [place] [address] Care Team Providers Care President Commercial Bank Name Role Phone Kamlesh Rothman PCP Unavailable Allergies and Adverse Reactions Name Reaction Notes PENICILLINS Plan of Treatment Planned Activity Comments Planned Date Planned Time Plan/Goal HGB A1C 12/01/2018 12:00 AM CMP 12/01/2018 12:00 AM Medications Active Name Start Date [...] STICK/TABLET RGNT AUTO W/O ALON ROSCOPY Returned 12/01/2018 12:00 AM ROUTINE VENIPUNCTURE Reviewed Results Summary Not available. History Of Immunizations Name Date Admin Mfg Name Mfg Code Trade Name Lot# Route Inj Vis Given Vis Pub CVX Tdap 10/30/2018 GlaxBit Cauldron SKB BOOSTRIX [id number] Intramuscular Left Deltoid 10/30/2018 [...] Number Papi cy Group [id number]/ A History of Encounters Visit Date Visit Type Provider 11/25/2018 Laboratory Kamlesh EDGE 11/07/2018 Office visit Bladimir Morales NP 10/30/2018 Nurse visit Kamlesh EDGE
--- OUTSIDE RECORDS SUMMARY | 2019-08-22 07:17 | XMS REPORT ---
Author Jose Luis Roman [facility] Address [address] [place], [place] [address] Care Team Providers Care Warehouse Packaging Supervisor Name Role Phone Kamlesh Rothman PCP Unavailable Allergies and Adverse Reactions Not available. Plan of Treatment Planned Activity Comments Planned Date Planned Time Plan/Goal Tdap Vaccine 7 yrs & older 10/30/2018 12:00 AM Medications Not available. Problem List Not available. Vital Signs Not available. Social History Not available. History of Procedures Date Ordered Description Order Status 10/30/2018 12:00 AM THER/PROPH/DIAG INJ SC/IM Reviewed Results Summary Not available. History Of Immunizations Not available. History of Past Illness Name Date of Onset Comments Encounter for administration of vaccine Oct 30 2018 10:15AM Payers Insurance Name Company Name Plan Name Plan Number Policy Number Papi cy Group Number [id number]/ A History of Encounters Visit Date Visit Type Provider 10/30/2018 Nurse visit Kamlesh EDGE
--- OUTSIDE RECORDS SUMMARY | 2019-08-22 07:17 | XMS REPORT ---
Author Author Jose Luis Morales Organization [facility] Address [address] [place], [place] [address] Care Team Providers Care Sales Systems Engineer Name Role Phone Bladimir Morales PCP Allergies and Adverse Reactions Name Reaction Notes PENICILLINS Plan of Treatment Planned Activity Comments Planned Date Planned Time Plan/Goal CBC W/ AUTO DIFF (RFLX MAN DIFF IF IND). 11/25/2018 12:00 AM CMP 11/25/2018 12:00 AM Thyroid function panel 11/25/2018 12:00 AM Thyroid function panel 11/25/2018 12:00 AM LIPID PANEL 11/25/2018 12:00 AM URINALYSIS ROUTINE C&S IF IND 11/25/2018 12:00 AM Medications Active Name Start Date [...] Reviewed 11/25/2018 12:00 AM ROUTINE VENIPUNCTURE Reviewed Results Summary Not available. 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 [id number] N/ A History of Encounters Visit Date Visit Type Provider 11/07/2018 Office visit Bladimir Morales NP 10/30/2018 Nurse visit Kamlesh EDGE
--- OUTSIDE RECORDS SUMMARY | 2019-08-22 07:17 | XMS REPORT ---
Author Author Jose Luis Rothman Organization [facility] Address [address] [place], [place] [address] Care Team Providers Care Destination Imagination Coordinator Name Role Phone Kamlesh Rothman PCP Unavailable [...] daily in the evening for 90 days Name Start Date Expiration Date SIG Comments [...] W/O ALON ROSCOPY Returned 12/01/2018 12:00 AM GLYCOSYLATED HEMOGLOBIN TEST Returned 12/01/2018 12:00 AM COMPREHEN METABOLIC PANEL Returned 12/01/2018 12:00 AM ROUTINE VENIPUNCTURE Reviewed Results Summary Not available. History Of Immunizations Name Date Admin Mfg Name Mfg Code Trade Name Lot# Route Inj Vis Given Vis Pub CVX Tdap 10/30/2018 GlaxRentColumn Communications SKB BOOSTRIX [id number] Intramuscular Left Deltoid 10/30/2018 04/11/2019 115 History of Past Illness Name Date [...] 2018 7:00PM Obesity Dec 01 2018 7:00PM Payers Insurance Name Company Name Plan Name Plan Number Policy Number Papi cy Group Number Start Date BCBS [facility] [id number] N/ A History of Encounters Visit Date Visit Type Provider 12/01/2018 Laboratory Kamlesh White PRN 11/25/2018 Laboratory Kamlesh White PRN 11/07/2018 Office visit Bladimir Morales NP 10/30/2018 Nurse visit Kamlesh White PRN
--- OUTSIDE RECORDS SUMMARY | 2019-08-22 07:17 | XMS REPORT ---
Author Author Jose Luis Morales [facility] Address [address] [place], [place] [address] Care Team Providers Care Survey Researcher Name Role Phone Bladimir Morales PCP Allergies and Adverse Reactions Name Reaction Notes PENICILLINS Plan of Treatment Not available. Medications Active Name Start Date Estimated Completion Date SIG Co mments zinc 50 mg oral tablet take 1 tablet by o ral route Fish Oil oral clindamycin HCl 300 mg oral capsule 11/07/2018 [...] AM TDAP VACCINE 7 YRS/> IM Reviewed Results Summary Not available. 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
--- NOTE | 2019-08-22 07:28 | Progress Note-Pre Operative ---
Pre-Operative Progress Note H&P Reviewed The H&P was reviewed, patient examined and no changes noted. Date Seen by Provider: August 22, 2019 Time Seen by Provider: :28 Date H&P Reviewed: August 22, 2019 Time H&P Reviewed: : Pre-Operative Diagnosis: left knee primary osteoarthritis FELY MUNOZ MD August 22, 2019 07:28
--- NOTE | 2019-08-22 07:29 | Progress Note-Post Operative ---
Post-Operative Progess Note Surgeon (s)/Party Plan Dealer (s) Surgeon FELY MUNOZ MD Party Plan Dealer: Tyson Urena Pre-Operative Diagnosis left knee primary osteoarthritis Post-Operative Diagnosis left knee primary osteoarthritis Procedure & Operative Findings Date of Procedure 08/22/19 Procedure Performed/Findings left total knee arthroplasty Anesthesia Type spinal Estimated Blood Loss Estimated blood loss (mL): minimal Specimens/Packing Specimens Removed none Packing: none FELY MUNOZ MD August 22, 2019 07:29
[2019-08-22] MEDS ORDERED: ACETAMINOPHEN 325 MG TABLET PO PRN (07:30)
[2019-08-22] MEDS ORDERED: OXYC1TAB87 PO (07:30)
[2019-08-22] MEDS ORDERED: CEFUROXIME INJECTION 1,500 MG in WATER (STERILE) FOR INJECTION 15 ML IV ONE (07:30)
--- NOTE | 2019-08-22 07:32 | D/C HH Face to Face Order ---
D/C Face to Face Orders Reconcile Patient Problems Problems Reviewed?: Yes Instructions for Patient [facility], Patient Instructions/FollowUp: three weeks Physician to follow Patient: three weeks Discharge Diet for Home: Regular Diet Patient Data-Allergies,Ht & Wt Patient Allergies: Coded Allergies: Penicillins (Verified Allergy, Unknown, FROM CHILDHOOD, 08/15/19) Home Health Need/Face to Face Date of Face to Face: August 22, 2019 Clinical Findings: Instability, Muscle weakness, Pain with ambulation, Unsteady gait I have seen Pt [id number]: Yes Discharged To: Home Diagnosis/Conditions: left total knee arthroplasty Patient is Homebound due to: Ronald fall risk due to instabilty, Muscle weakness, Pain w/ambulation Homebound Status Due to the above stated illness, injury or surgical procedure (medical condition or diagnosis) and associated clinical findings, the patient is home bound because of his/her inability to leave home except with aid of a supportive device and/or person AND leaving the home requires a considerable and taxing effort or is medically contraindicated. Pt req the following assistanc: [facility] Nursing Orders Home Health Services Order: Physical Therapy-Evaluate & Treat DC left knee whit and apply steri strips 09/05/19 Therapy Orders Therapy Orders: Physical Therapy, PT to assess for OT Therapy Specific Orders: Eval assistive deivces, Teach enviro modifications/safety, Gait training, Increase strength/endurance, Provider maintenance therapy, Restore ROM Certify Stmt I certify that this patient is under my care and that I, a nurse practitioner or a physician; a marketing communications assistant working with me, had a face to face encounter that - meets the physician face to face encounter requirements with this patient as dated. FELY MUNOZ MD August 22, 2019 07:32
[2019-08-22] MEDS ORDERED: INTRA-ARTICULAR IU ONE ×5 (07:45)
[2019-08-22] MEDS ORDERED: proPOfol 200 MG/20 ML (DIPRIVAN) VIAL IV ONE (08:24)
[2019-08-22] MEDS ORDERED: MIDAZOLAM 2 MG/2 ML (VERSED) VIAL ONE ×2 (08:24→09:32)
[2019-08-22] MEDS ORDERED: fentaNYL INJECTION 100 MCG/2 ML AMP ONE (08:26)
[2019-08-22] MEDS ORDERED: LIDOCAINE PF 2% 5 ML (XYLOCAINE) VIAL ONE ×2 (08:31→09:53)
[2019-08-22] MEDS: LACTATED RINGERS 1,000 ML IV PRN ×2 (08:33→09:30)
[2019-08-22 08:42] LABS: BASOPHILS % (AUTO) 0 % (0-10); EOSINOPHILS # (AUTO) 0.2 10^3/uL (0.0-0.3); EOSINOPHILS % (AUTO) 3 % (0-10); HEMATOCRIT 44 % (40-54); HEMOGLOBIN 15.2 G/DL (13.3-17.7); LYMPHOCYTES # (AUTO) 1.3 X 10^3 (1.0-4.0); LYMPHOCYTES % (AUTO) 22 % (12-44); MEAN CORPUSCULAR HEMOGLOBIN 30 PG (25-34); MEAN CORPUSCULAR HGB CONC 35 G/DL (32-36); MEAN CORPUSCULAR VOLUME 86 FL (80-99); MEAN PLATELET VOLUME 9.3 FL (7.4-10.4); MONOCYTES # (AUTO) 0.6 X 10^3 (0.0-1.0); MONOCYTES % (AUTO) 10 % (0-12); NEUTROPHILS # (AUTO) 3.9 X 10^3 (1.8-7.8); NEUTROPHILS % (AUTO) 65 % (42-75); PLATELET COUNT 185 10^3/uL (130-400); RED CELL DISTRIBUTION WIDTH 13.5 % (10.0-14.5); WHITE BLOOD COUNT 6.1 10^3/uL (4.3-11.0)
[2019-08-22] MEDS ORDERED: diphenhydrAMINE 50 MG/ML INJ (BENADRYL) IVP PRN (09:15)
[2019-08-22] MEDS ORDERED: morphine PCA 100 MG/100 ML BAG IV PRN (09:15)
[2019-08-22] MEDS ORDERED: ONDANSETRON 4 MG/2 ML (SDV) Z0FRAN IVP PRN ×2 (09:15→11:30)
[2019-08-22] MEDS ORDERED: TRANEXAMIC ACID 100 MG/ML 10 ML INJECTION IV ONE (09:35)
[2019-08-22] MEDS ORDERED: BUPIVACAINE 0.5% 30 ML (SENSORCAINE) VIAL ONE (09:53)
[2019-08-22] MEDS ORDERED: PROPOFOL INJECTION 100 ML IV ONE (11:04)
[2019-08-22] MEDS ORDERED: HYDROmorphone 2 MG/ML VIAL (DILAUDID) IV ONE (11:30)
--- NOTE | 2019-08-22 12:19 | Diagnostic Imaging Report ---
INDICATION: Left knee pain. FINDINGS: Two views of the left knee show postop changes from joint arthroplasty. There is no evidence of loosening. There is no acute fracture. IMPRESSION: Good alignment of the left knee following joint arthroplasty. Dictated by: Dictated on workstation # [id number]
[2019-08-22] MEDS: NS IV 1000 ML 1,000 ML IV SCH ×2 (13:00→23:45)
[2019-08-22] MEDS: SENNA W/DOCUSATE (SENOKOT S) TABLET PO SCH ×2 (13:00→20:58)
--- NOTE | 2019-08-22 13:02 | Progress Note ---
Standard Progress Note Progress Notes/Assess & Plan Date Seen by a Provider: August 22, 2019 Time Seen by a Provider: 11:25 Progress/Assessment & Plan post op check non complaints Radiographs--HW well positioned without fracture LLE--block in effect. 2 plus DP pulse with brisk cap refill s/p LTKA mobilize when able FELY MUNOZ MD August 22, 2019 13:02
--- NOTE | 2019-08-22 13:56 | Physical Therapy Evaluation ---
PT Evaluation-General Medical Diagnosis Admission Date August 22, 2019 at 07:10 Medical Diagnosis: (L) TKA Onset Date: August 22, 2019 Therapy Diagnosis Therapy Diagnosis: difficulty walking Precautions Precautions/Isolations: Standard Precautions Weight Bear Status Full Weight Bearing Weight Bearing/Tolerated Referral Physician: Pankaj Reason for Referral: Evaluation/Treatment Prior Prior Level of Function SCALE: Activities may be completed with or without assistive devices. 2-Uwxqovlnas-kshgrez completes the activity by him/herself with no assistance from a helper. 5-Set-up or Clean-up Assistance-helper sets up or cleans up; patient completes activity. [place] assists only prior to or following the activity. 4-Supervision or Touching Assistance-helper provides verbal cues and/or touching/steadying and/or contact guard assistance as patient completes activity. Assistance may be provided throughout the activity or intermittently. 3-Partial/Moderate Assistance-helper does LESS THAN HALF the effort. [place] lifts, holds or supports trunk or limbs, but provides less than half the effort. 2-Substantial/Maximal Assistance-helper does MORE THAN HALF the effort. [place] lifts or holds trunk or limbs and provides more than half the effort. 0-Ubyeujgyj-ffuqom does ALL the effort. Patient does none of the effort to complete the activity. Or, the assistance of 2 or more helpers is required for the patient to complete the activity. If activity was not attempted, code reason: 7-Patient Refused. 9-Not Applicable-not attempted and the patient did not perform the activity before the current illness, exacerbation or injury. 10-Not Attempted due to Environmental Limitations-(lack of equipment, weather restraints, etc.). 88-Not Attempted due to Medical Conditions or Safety Concerns. Bed Mobility: 6 Transfers (B,C,W/C): 6 Gait: 6 Stairs: 6 Indoor Mobility (Ambulation): Independent Stairs: Independent Prior Devices Use: None PT Evaluation-Current Subjective States that he is doing well and not having any pain. Pain Numeric Pain Scale: 0-No Pain ROM/Strength ROM Lower Extremities 5 - 55 degrees of (L) knee AAROM Integumentary/Posture Bowel Incontinence: No Bladder Incontinence: No Transfers Roll Left to Right (QC): 5 Sit to Lying (QC): 5 Lying to Sitting/Side of Bed(Q: 5 Sit to Stand (QC): 5 Gait Does the Patient Walk?: Yes Mode of Locomotion: Walk Anticipated Mode of Locomotion: Walk Walk 10 feet (QC): 88 Walk 50 ft with 2 Turns(QC): 88 Walk 150 ft (QC): 88 Walking 10ft/uneven surface-QC: 88 Distance: 0' Gait Assistive Device: FWW Comments/Gait Description Patient had significant (L) LE instability secondary to block Balance Sitting Static: Fair Sitting Dynamic: Normal Standing Static: Fair Assessment/Needs 54 y.o. male with a diagnosis of (L) TKA. The patient has functional mobility limitations secondary to pain and weakness. He should do well with skilled therapy. Rehab Potential: Good PT Short Term Goals Short Term Goals Time Frame: August 25, 2019 Roll Left & Right: 6 Sit to lyin Lying to sitting on side of be: 6 Sit to stand: 6 Chair/fxr-di-dbmay transfer: 6 Toilet transfer: 6 Car transfer: 6 Walk 10 feet: 5 Walk 50 feet with two turns: 5 Walk 150 feet: 5 1 step (curb): 5 PT Neurology Physician Assistant Goals Fpc Goals PT Neurology Physician Assistant Goals Time Frame: August 29, 2019 Roll Left & Right (QC): 6 Sit to Lying (QC): 6 Lying-Sitting on Side/Bed(QC): 6 Sit to Stand (QC): 6 Chair/Fmn-ck-Hotwp Xfer(QC): 6 Toilet Transfer (QC): 6 Car Transfer (QC): 6 Does the Patient Walk: Yes Walk 10 feet (QC): 6 Walk 50ft with 2 Turns (QC): 6 Walk 150 ft (QC): 6 Walking 10ft on Uneven Surface: 6 1 Step (curb) (QC): 6 4 Steps (QC): 6 PT Plan Problem List Problem List: Activity Tolerance, Functional Strength, Safety, Balance, Gait, Transfer, Bed Mobility, ROM Treatment/Plan Treatment Plan: Continue Plan of Care Treatment Plan: Bed Mobility, Functional Activity Bubba, Functional Strength, Gait, Safety, Therapeutic Exercise, Transfers Treatment Duration: August 29, 2019 Frequency: 11 times per week Estimated Hrs Per Day: 1 hour per day Safety Risks/Education Patient Education: Gait Training, Transfer Techniques Teaching Recipient: Patient Teaching Methods: Demonstration, Discussion Response to Teaching: Verbalize Understanding Time/GCodes Time In: 1310 Time Out: 1335 Total Billed Treatment Time: 25 Total Billed Treatment 1, EV low complexity x 25 RIKKI GALO PT August 22, 2019 13:56
[2019-08-22] MEDS: oxyCODONE/APAP 5/325MG (PERCOCET 5) TABLET PO PRN ×4 (14:03→23:42)
--- NOTE | 2019-08-22 14:19 | OPERATIVE REPORT ---
DATE OF SERVICE: 08/22/2019 PREOPERATIVE DIAGNOSIS: Left knee primary osteoarthritis. POSTOPERATIVE DIAGNOSIS: Left knee primary osteoarthritis. PROCEDURE: Left total knee arthroplasty. SURGEON: Jordan Munoz MD RETAIL SALES ASSOCIATE BILINGUAL: Tyson Key, who assisted throughout the procedure and closed the incisions. ANESTHESIA: Spinal by Glenis Faust CRNA. TOURNIQUET TIME: Approximately 80 minutes at 300 mmHg. ESTIMATED BLOOD LOSS: Minimal. DRAINS: None. COMPLICATIONS: None. POSTOPERATIVE PLAN: Routine total knee arthroplasty protocol. The patient was transferred to the recovery room awake and in stable condition. MATERIALS: MicroPort cement size 6 femur, cemented size 6+ tibia with 12 mm insert and cemented size 35 patellar button. STATEMENT OF MEDICAL NECESSITY: The patient is a 54-year-old gentleman with longstanding progressive left knee pain. He had severe medial and patellofemoral arthrosis with complete loss of joint spaces. He had undergone treatment with injections, arthroscopy and anti-inflammatories without relief. Due to progressive functional loss, the patient elected to proceed with surgical intervention. DESCRIPTION OF PROCEDURE: After risks and benefits of procedure were discussed and questions were answered, an informed consent was signed and placed on chart, the operative site was confirmed in the preoperative holding area initialed by the surgeon. The patient was then transferred to the operating room and after adequate levels of regional anesthetic were obtained, a timeout was called, confirming the operative site. The left lower extremity was prepped and draped in the usual sterile fashion with the leg elevated and the knee flexed, the tourniquet was deflated to 300 mmHg. Standard anterior approach was utilized. Hemostasis was obtained with cautery. Medial parapatellar arthrotomy was performed leaving 1 cm cuff on the patella for later reattachment. A portion of the fat pad was resected. The ACL was resected. The intramedullary guide was passed into the femur and the distal cutting block was placed and distal cut was made and femur was sized to a size 6 and 6 cutting block was placed parallel to the epicondylar axis and cuts were made from posterior to anterior. Subperiosteal release was then carefully performed on the posterior distal femur, being careful to stay on the bony surface. Intramedullary guide was passed into the tibia and the drop rosa was placed and drop rosa transected the intermalleolar axis and the cut was made. The baseplate was placed and again the drop rosa transected the intermalleolar axis as was prepared with the drill and keel punch. The femoral trial was placed and trochlear cut was made. The tibia erode anterior somewhat therefore the PCL was slightly released. A 12 mm insert was placed. The patella was prepared using freehand technique and resecting 10 mm off the undersurface. The peg guide was placed and peg holes were drilled. The 35 trial was placed. Full extension was easily obtained, 120 degrees of flexion with gravity was easily obtained. There was no anterior/posterior or medial/lateral laxity in flexion or extension. Trials were removed. The joint was irrigated with pulse lavage. The periarticular block was placed in the posterior capsule, medial and lateral retinaculum extensor mechanism subcutaneous tissues. The bone ends were irrigated and dried. The tibial baseplate was cemented into position. Excessive cement was removed, the superior surface was irrigated and dried. The polyethylene insert was placed. Distal femur was irrigated and dried and the femoral prosthesis was cemented into position, removing excessive cement. The knee was brought out into full extension and held until the cement had cured. The undersurface of the patella was irrigated and dried. The patellar button was cemented into position. Excess cement was removed. Once cement had cured, the knee was taken through range of motion. There was a full extension easily obtained, 120 degrees of flexion with gravity was easily obtained. The patella tracked well. There was no anterior/posterior or medial/lateral laxity in flexion or extension. The joint was further irrigated with pulse lavage. Arthrotomy was closed with #2 Tevdek in wxubvs-hn-umypa interrupted fashion. The knee was flexed. There was no undue tension at the repair site. The subcutaneous tissues were irrigated using a total of 6 liters throughout the procedure. A 0 Vicryl was used to deep subcutaneous tissue, 2-0 Vicryl for the superficial subcutaneous tissue, whit used on the skin. A soft dressing was applied. The tourniquet was deflated. The patient was transferred to the recovery room awake and in stable condition. Job ID: [id number] DocumentID: [id number] Dictated Date: 08/22/2019 11:15:23 Foreign Service Teacher Date: 08/22/2019 14:18:45 Dictated By: JORDAN MUNOZ MD
[2019-08-22] MEDS ORDERED: hydrALAZINE (APESOLINE) 20 MG/ML VIAL IV PRN (14:30)
--- NOTE | 2019-08-22 14:33 | Consultation - Hospitalist ---
HPI History of Present Illness: HPI/Chief Complaint Jose Luis Talavera is a 54-year-old male with past medical history of hypertension, obesity, osteoarthritis, who presents for a scheduled left total knee arthroplasty. He underwent the surgery today with Dr. Lira. Upon my examination postoperatively, he reports feeling well. He said there is an issue with his morphine pump but this is now been resolved. He denies any pain at this time. He denies any nausea or vomiting. He denies any fevers or chills. He denies any shortness of breath or cough. He denies any abdominal pain. He has no other complaints or concerns. Source: patient Exam Limitations: no limitations Date Seen 08/22/19 Attending Physician Jordan Lira MD PCP Chin Siddiqui MD Referring Physician Date of Admission August 22, 2019 at 07:10 Home Medications & Allergies Home Medications Reviewed patient Home Medication Reconciliation performed by pharmacy medication reconciliations highway technician and/or nursing. Patients Allergies have been reviewed. Allergies Allergies Coded Allergies Penicillins (Verified Allergy, Unknown, FROM CHILDHOOD, 08/15/19) Past Sjjekhx-Ftrfwe-Tkqwcd Hx Past Med/Social Hx: Reviewed Nursing Past Med/Soc Hx Patient Social History Alcohol Use: Occasionally Uses Recreational Drug Use: No Smoking Status: Never a Smoker Physical Abuse Screen: No Sexual Abuse: No Recent Foreign Travel: No Contact w/other who traveled: No Recent Hopitalizations: No Recent Infectious Disease Expo: No Seasonal Allergies Seasonal Allergies: No Past Medical History Currently Using CPAP: Yes (DOESN'T USE ALL THE TIME) Sexually Transmitted Disease: No HIV/AIDS: No Genitourinary: Kidney Stones Musculoskeletal: Arthritis Loss of Vision: Denies Hearing Impairment: Denies Cancer: Skin Did You Recieve Any Treatments: Yes History of Blood Disorders: No Adverse Reaction to Blood Hall: No (N/A) Review of Systems Constitutional: no symptoms reported EENTM: no symptoms reported Respiratory: no symptoms reported Cardiovascular: no symptoms reported Gastrointestinal: no symptoms reported Genitourinary: no symptoms reported Musculoskeletal: no symptoms reported Skin: no symptoms reported Psychiatric/Neurological: No Symptoms Reported Physical Exam Physical Exam Vital Signs Vital Signs - First Documented 08/22/19 07:18 Temp 36.6 Pulse 82 Resp 20 B/P (MAP) 149/79 Pulse Ox 96 O2 Delivery Room Air Capillary Refill : Less Than 3 Seconds Height, Weight, BMI Height: '" Weight: lbs. oz. kg; 36.37 BMI Method: General Appearance: No Apparent Distress, Obese HEENT: PERRL/EOMI, Pharynx Normal Neck: Normal Inspection, Supple Respiratory: Lungs Clear, Normal Breath Sounds, No Respiratory Distress Cardiovascular: Regular Rate, Rhythm, No Edema, No Murmur Gastrointestinal: Normal Bowel Sounds, Non Tender, Soft Extremity: Normal Inspection, Non Tender, No Pedal Edema Neurologic/Psychiatric: Alert, Oriented x3, No Motor/Sensory Deficits, Normal Mood/Affect Skin: Normal Color, Warm/Dry Results Results/Procedures Labs Laboratory Tests 08/22/19 08:20 Patient resulted labs reviewed. Imaging: Reviewed Imaging Report Assessment/Plan Assessment and Plan Assess & Plan/Chief Complaint Left knee osteoarthritis Status post total knee arthroplasty Underwent surgery with Dr. Lira 08/21 Pain regimen ordered Bowel regimen ordered Incentive spirometer ordered PT/OT Essential hypertension Resume lisinopril Hydralazine as needed DVT prophylaxis: LoveLUZ Hadley MD August 22, 2019 14:33
[2019-08-22] MEDS: CEFUROXIME INJECTION 750 MG in WATER (STERILE) FOR INJECTION 10 ML IV SCH (17:10)
[2019-08-22] MEDS ORDERED: ONDANSETRON 4 MG/2 ML (SDV) Z0FRAN IVP ONE (20:15)
--- NOTE | 2019-08-22 20:17 | NUR ---
PT REPORTS FEELING NAUSEATED, HIS NIECE WHO IS A HOSPITAL UNIT CLERK AT [facility] IN ROOM WITH PT, SHE CONTACTED RADHA GRIFFITH REGARDING AN ORDER FOR ZOFRAN, AND GAVE 4MG ZOFRAN AFTER DISCUSSING IT WITH THE MACHINE SHOP INSPECTOR. THIS NURSE GAVE PT A PERCOCET FOR HIS PAIN, PT VOMITED SOON HE SWALLOWED THE PILL. PT WONDERING IF HE COULD STILL GET A PERCOCET ONCE HIS STOMACH SETTLES DOWN, THIS NURSE CONFIRMED WITH RADHA GRIFFITH, AND HE SAID THAT WOULD BE FINE.
[2019-08-22] MEDS ORDERED: ONDANSETRON 4 MG/2 ML (SDV) Z0FRAN ONE (21:30)
[2019-08-23] MEDS: CEFUROXIME INJECTION 750 MG in WATER (STERILE) FOR INJECTION 10 ML IV SCH (01:09)
[2019-08-23] MEDS: oxyCODONE/APAP 5/325MG (PERCOCET 5) TABLET PO PRN ×8 (02:54→22:44)
[2019-08-23 04:55] VITALS: BP 131/76
[2019-08-23 05:17] LABS: HEMOGLOBIN 12.5 G/DL (13.3-17.7)
[2019-08-23] MEDS: MULTIVIT W/MINERALS TAB (THERAGRAN M) PO SCH (06:38)
[2019-08-23 07:37] VITALS: BP 119/72
--- NOTE | 2019-08-23 07:55 | Progress Note ---
Standard Progress Note Progress Notes/Assess & Plan Date Seen by a Provider: August 23, 2019 Time Seen by a Provider: 07:54 Progress/Assessment & Plan post op check non complaints Radiographs--HW well positioned without fracture LLE--block in effect. 2 plus DP pulse with brisk cap refill s/p LTKA mobilize when able Final Diagnosis no complaints Vital Signs Date Time Temp Pulse Resp B/P (MAP) Pulse Ox O2 Delivery O2 Flow Rate FiO2 08/23/19 07:37 37.0 77 18 119/72 (88) 93 Room Air 08/23/19 04:55 36.8 77 18 131/76 (94) 95 Room Air 08/22/19 23:33 36.8 69 18 121/76 (91) 95 NIV CPAP 08/22/19 20:10 Room Air 08/22/19 20:00 35.7 69 18 132/80 (97) 96 Room Air 08/22/19 18:02 36.0 72 18 118/59 (78) 97 Room Air 08/22/19 12:19 36.2 16 130/87 (101) 99 Room Air 08/22/19 12:19 Room Air 08/22/19 12:15 36.4 71 18 138/79 (98) 99 Room Air 08/22/19 12:10 16 130/87 (101) 99 Room Air 08/22/19 12:05 Room Air 08/22/19 12:00 16 127/82 (97) 99 Room Air 08/22/19 11:50 14 119/77 (91) 96 Room Air 08/22/19 11:50 Room Air 08/22/19 11:40 16 132/69 (90) 97 OxyMask 3 08/22/19 11:35 OxyMask 3 08/22/19 11:30 14 126/75 (92) 99 OxyMask 3 08/22/19 11:20 36.2 20 114/64 (81) 96 OxyMask 6 08/22/19 11:20 OxyMask 6 I & O 08/23/19 07:00 Intake Total 2475 ml Output Total 1400 ml Balance 1075 ml Laboratory Tests Test 08/22/19 08:20 08/23/19 04:55 Range/Units White Blood Count 6.1 4.3-11.0 10^3/uL Red Blood Count 5.10 4.35-5.85 10^6/uL Hemoglobin 15.2 12.5 L 13.3-17.7 G/DL Hematocrit 44 37 L 40-54 % Mean Corpuscular Volume 86 80-99 FL Mean Corpuscular Hemoglobin 30 25-34 PG Mean Corpuscular Hemoglobin Concent 35 32-36 G/DL Red Cell Distribution Width 13.5 10.0-14.5 % Platelet Count 185 130-400 10^3/uL Mean Platelet Volume 9.3 7.4-10.4 FL Neutrophils (%) (Auto) 65 42-75 % Lymphocytes (%) (Auto) 22 12-44 % Monocytes (%) (Auto) 10 0-12 % Eosinophils (%) (Auto) 3 0-10 % Basophils (%) (Auto) 0 0-10 % Neutrophils # (Auto) 3.9 1.8-7.8 X 10^3 Lymphocytes # (Auto) 1.3 1.0-4.0 X 10^3 Monocytes # (Auto) 0.6 0.0-1.0 X 10^3 Eosinophils # (Auto) 0.2 0.0-0.3 10^3/uL Basophils # (Auto) 0.0 0.0-0.1 10^3/uL LLE dressing intact. No calf tenderness. NVI s/p MAGDA PT/OT FELY MUNOZ MD August 23, 2019 07:55
[2019-08-23] MEDS: lisINopril 10 MG (PRINIVIL) TABLET PO SCH (08:19)
[2019-08-23] MEDS: SENNA W/DOCUSATE (SENOKOT S) TABLET PO SCH ×2 (08:19→20:02)
[2019-08-23] MEDS: ASPIRIN E.C. 81 MG (ECOTRIN) TAB PO SCH (08:19)
[2019-08-23] MEDS: ENOXAPARIN 30 MG/0.3 ML (LOVENOX) SYR SC SCH ×2 (08:20→20:02)
[2019-08-23] MEDS: NS IV 1000 ML 1,000 ML IV SCH ×2 (08:36→11:30)
--- NOTE | 2019-08-23 11:39 | Occupational Therapy Eval ---
OT Evaluation-General/PLF Medical Diagnosis Admission Date August 22, 2019 at 07:10 Medical Diagnosis: (L) TKA Onset Date: August 22, 2019 Therapy Diagnosis Therapy Diagnosis: Decreased ADL status Precautions Precautions/Isolations: Fall Prevention, Standard Precautions Weight Bear Status Weight Bearing Restriction: Weight Bearing/Tolerated Location Restriction: L LE Referral Physician: Pankaj Referral Reason: Activity Tolerance, Self Care, Evaluation/Treatment, Strengthening/ROM Medical History Current History Elective L TKA 08/21. Reviewed History: Yes Social History Home: Single Level Current Living Status: Significant Other (and 3 children) Entry Into Home: Stairs Without Railing (1 step ) Steps Into Home: 1 ADL-Prior Level of Function SCALE: Activities may be completed with or without assistive devices. 0-Hkwjtvyheb-dpgvfsc completes the activity by him/herself with no assistance from a helper. 5-Set-up or Clean-up Assistance-helper sets up or cleans up; patient completes activity. [place] assists only prior to or following the activity. 4-Supervision or Touching Assistance-helper provides verbal cues and/or touching/steadying and/or contact guard assistance as patient completes activ ity. Assistance may be provided throughout the activity or intermittently. 3-Partial/Moderate Assistance-helper does LESS THAN HALF the effort. [place] lifts, holds or supports trunk or limbs, but provides less than half the effort. 2-Substantial/Maximal Assistance-helper does MORE THAN HALF the effort. [place] lifts or holds trunk or limbs and provides more than half the effort. 6-Vwnasuagc-hhylce does ALL the effort. Patient does none of the effort to complete the activity. Or, the assistance of 2 or more helpers is required for the patient to complete the activity. If activity was not attempted, code reason: 7-Patient Refused. 9-Not Applicable-not attempted and the patient did not perform the activity before the current illness, exacerbation or injury. 10-Not Attempted due to Environmental Limitations-(lack of equipment, weather restraints, etc.). 88-Not Attempted due to Medical Conditions or Safety Concerns. ADL PLOF Comments Pt states IND with I/ADLs, though limited at times by pain of L knee Self Care: Independent Functional Cognition: Independent DME/Equipment: Bath Chair, Shower DME/Equipment Comments 2WW, sc, walk in, high rise toilet. 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 Pt introduced to OT/ role. Pt expresses 7/10 pain and states "just got back to bed," declines ADLs at this time but provides items verbally for evaluation. Pt alert/ oriented Mental Status/Objective Patient Orientation: Normal For Age Attachments: IV, Other-See Comments (CPM L knee) Current Glasses/Contacts: Yes Hearing Aids: No Dentures/Partials: No Upper Extremity ROM WFL BUE Upper Extremity Coordination WFL BUE Upper Extremity Sensation WFL BUE Upper Extremity Strength WFL BUE ADL-Treatment Eating (QC): 6 (per clinical judgment. ) Oral Hygiene (QC): 6 (per clinical judgment.) Upper Body Dressing (QC): 5 Lower Body Dressing (QC): 3 (per clinical judgment) On/Off Footwear (QC): 2 (per pt report. ) Other Treatments Pt denies ADLs, agrees to therapy. Pt states 7/10 pain, presses pain button. Pt states his ADL levels as above, pt educated on AE: dairy equipment installer, dressing stick, sock aide. Pt nods in understanding. Pt educated on OT return for ADL tx session as pt declines at this time. Pt agrees. Pt states d/c tomorrow to home with / kids. Pt declines needs, call light in reach, all needs met. Education OT Patient Education: Modified ADL techniques, Purpose of tx/functional activities, Use of adapted equipment Teaching Recipient: Patient Teaching Methods: Demonstration, Discussion Response to Teaching: Verbalize Understanding OT [place] Targeting Supervisor Goals [place] Targeting Supervisor Goals Time Frame: August 30, 2019 Toileting Hygiene (QC): 6 Shower/Bathe Self (QC): 6 Upper Body Dressing (QC): 6 Lower Body Dressing (QC): 6 On/Off Footwear (QC): 6 Additional Goals: 1-Demonstrate ADL Tasks, 2-Verbalize Understanding, 3- ImproveStrength/Bubba 1=Demonstrate adherence to instructed precautions during ADL tasks. 2=Patient will verbalize/demonstrate understanding of assistive devices/modifications for ADL. 3=Patient will improve strength/tolerance for activity to enable patient to perform ADL's. OT Education/Plan Problem List/Assessment Assessment: Decreased Activ Tolerance, Impaired I ADL's, Impaired Self-Care Skills Discharge Recommendations Plan/Recommendations: Continue POC Therapy Discharge Recommendati: Home & Family Equpiment Recommendations-D/C: Hip Kit Treatment Plan/Plan of Care Treatment,Training & Education: Yes Patient would benefit from OT for education, treatment and training to promote independence in ADL's, mobility, safety and/or upper extremity function for ADL's. Plan of Care: ADL Retraining, Functional Mobility Treatment Duration: August 30, 2019 Frequency: 5 times per week Estimated Hrs Per Day: .25 hour per day Agreement: Yes Rehab Potential: Good Time/GCodes Start Time: 11:20 Stop Time: 11:29 Total Time Billed (hr/min): 9 Billed Treatment Time 1, EVL (9) SUNDEEP IRAHETA OTR August 23, 2019 11:39
[2019-08-23 12:52] VITALS: BP 123/72
--- NOTE | 2019-08-23 13:33 | Occupational Ther Daily Note ---
OT Current Status-Daily Note Subjective Pt alert, lying in bed. Pt agrees to therapy. Pt stated that his nerve block is wearing off. Mental Status/Objective Patient Orientation: Person, Place, Time, Situation Attachments: IV, Polar Pack ADL-Treatment Pt requested to use bathroom. Mod I for supine <--> EOB. SBA to ambulate to bathroom, assist to manipulate IV pole. Standing to urinate at toilet, SBA. Then pt ambulated to wash hands and face. Pt then sat on EOB to doff/don R sock with AE, assist do to decreased ROM and increased swelling to don/doff L sock. Educated pt on AE for lower body dressing and where to acquire if wanted. After session, pt lying in bed with call light/phone in reach. All needs met in room. Therapy Code Descriptions/Definitions Functional [place] Measure: 0=Not Assessed/NA 4=Minimal Assistance 1=Total Assistance 5=Supervision or Setup 2=Maximal Assistance 6=Modified [place] 3=Moderate Assistance 7=Complete IndependenceSCALE: Activities may be completed with or without assistive devices. 0-Pltzcfaqia-mwooszi completes the activity by him/herself with no assistance from a helper. 5-Set-up or Clean-up Assistance-helper sets up or cleans up; patient completes activity. [place] assists only prior to or following the activity. 4-Supervision or Touching Assistance-helper provides verbal cues and/or touching/steadying and/or contact guard assistance as patient completes activity. Assistance may be provided throughout the activity or intermittently. 3-Partial/Moderate Assistance-helper does LESS THAN HALF the effort. [place] lifts, holds or supports trunk or limbs, but provides less than half the effort. 2-Substantial/Maximal Assistance-helper does MORE THAN HALF the effort. [place] lifts or holds trunk or limbs and provides more than half the effort. 2-Gvuspvwcu-cvwouc does ALL the effort. Patient does none of the effort to complete the activity. Or, the assistance of 2 or more helpers is required for the patient to complete the activity. If activity was not attempted, code reason: 7-Patient Refused. 9-Not Applicable-not attempted and the patient did not perform the activity before the current illness, exacerbation or injury. 10-Not Attempted due to Environmental Limitations-(lack of equipment, weather restraints, etc.). 88-Not Attempted due to Medical Conditions or Safety Concerns. OT Halfway Goals Halfway Goals Time Frame: August 30, 2019 Toileting Hygiene (QC): 6 Shower/Bathe Self (QC): 6 Upper Body Dressing (QC): 6 Lower Body Dressing (QC): 6 On/Off Footwear (QC): 6 Additional Goals: 1-Demonstrate ADL Tasks, 2-Verbalize Understanding, 3- ImproveStrength/Bubba 1=Demonstrate adherence to instructed precautions during ADL tasks. 2=Patient will verbalize/demonstrate understanding of assistive devices/modifications for ADL. 3=Patient will improve strength/tolerance for activity to enable patient to perform ADL's. OT Education/Plan Problem List/Assessment Assessment: Impaired Self-Care Skills Discharge Recommendations Plan/Recommendations: Continue POC Treatment Plan/Plan of Care Patient would benefit from OT for education, treatment and training to promote independence in ADL's, mobility, safety and/or upper extremity function for ADL's. Plan of Care: ADL Retraining, Functional Mobility Treatment Duration: August 30, 2019 Frequency: 5 times per week Estimated Hrs Per Day: .25 hour per day Agreement: Yes Rehab Potential: Good Time/GCodes Start Time: 13:00 Stop Time: 13:26 Total Time Billed (hr/min): 26 Billed Treatment Time 1 visit-FA 1 (18 min) ADL 1 (8 min) MYCHAL GUERRERO August 23, 2019 13:33
--- NOTE | 2019-08-23 14:07 | Anesthesia-Regional Post-Op ---
Regional Patient Condition Mental Status: Alert, Oriented x3 Circulation: Same as Pre-Op Headache: Absent Sensation: Full Recovery Motor Block: Absent Post Op Complications Complications None Follow Up Care/Instructions Patient Instructions None needed. Anesthesia/Patient Condition Patient is doing well, no complaints, stable vital signs, no apparent adverse anesthesia problems. No complications reported per nursing. LUZMARIA WESLEY CRNA August 23, 2019 14:07
--- NOTE | 2019-08-23 14:07 | Anesthesia-General Post-Op ---
General Patient Condition Mental Status/LOC: Same as Preop Cardiovascular: Satisfactory Nausea/Vomiting: Absent Respiratory: Satisfactory Pain: Controlled Complications: Absent Post Op Complications Complications None Follow Up Care/Instructions Patient Instructions None needed. Anesthesia/Patient Condition Patient Condition Patient is doing well, no complaints, stable vital signs, no apparent adverse anesthesia problems. No complications reported per nursing. LUZMARIA WESLEY CRNA August 23, 2019 14:07
--- NOTE | 2019-08-23 14:24 | Physical Therapy Daily Note ---
PT Daily Note-Current Subjective Pain rated 5-6/10 (L) knee. Pt agreeable to PT. Pt reports good compliance with CPM. Mental Status Patient Orientation: Person, Place, Situation Attachments: IV Transfers SCALE: Activities may be completed with or without assistive devices. 0-Alqzzpyjdt-fgzgaqs completes the activity by him/herself with no assistance from a helper. 5-Set-up or Clean-up Assistance-helper sets up or cleans up; patient completes activity. [place] assists only prior to or following the activity. 4-Supervision or Touching Assistance-helper provides verbal cues and/or touching/steadying and/or contact guard assistance as patient completes activity. Assistance may be provided throughout the activity or intermittently. 3-Partial/Moderate Assistance-helper does LESS THAN HALF the effort. [place] lifts, holds or supports trunk or limbs, but provides less than half the effort. 2-Substantial/Maximal Assistance-helper does MORE THAN HALF the effort. [place] lifts or holds trunk or limbs and provides more than half the effort. 3-Erisdwqjy-zpwvah does ALL the effort. Patient does none of the effort to complete the activity. Or, the assistance of 2 or more helpers is required for the patient to complete the activity. If activity was not attempted, code reason: 7-Patient Refused. 9-Not Applicable-not attempted and the patient did not perform the activity before the current illness, exacerbation or injury. 10-Not Attempted due to Environmental Limitations-(lack of equipment, weather restraints, etc.). 88-Not Attempted due to Medical Conditions or Safety Concerns. Pt transfers out of bed with min A (L) LE Weight Bearing Full Weight Bearing Weight Bearing/Tolerated Gait Training Gait Assistive Device: FWW Pt amb with FWW and CGA, f/u IV pole x 100ft. Practiced heel/toe gait pattern and even stride length. Exercises Supine Ex: LE Protocol Supine Reps: 15 Treatments Pt issued copy of HEP including QS, heel slide, hip abd, SAQ, SLR, GS, heel slide in chair, knee ext in chair. Pt verbalized understanding. Assessment Current Status: Good Progress Pt showing good tolerance to ambulation with FWW. Pt amb with increased knee flexion, unable to straighten secondary to pain and swelling. Pt up in recliner with LE elevated post therapy session. PT Short Term Goals Short Term Goals Time Frame: August 25, 2019 Roll Left & Right: 6 Sit to lyin Lying to sitting on side of be: 6 Sit to stand: 6 Chair/mig-fp-iucir transfer: 6 Toilet transfer: 6 Car transfer: 6 Walk 10 feet: 5 Walk 50 feet with two turns: 5 Walk 150 feet: 5 1 step (curb): 5 PT Can Filling Room Sweeper Goals [facility] Goals PT Can Filling Room Sweeper Goals Time Frame: August 29, 2019 Roll Left & Right (QC): 6 Sit to Lying (QC): 6 Lying-Sitting on Side/Bed(QC): 6 Sit to Stand (QC): 6 Chair/Wif-mj-Lypce Xfer(QC): 6 Toilet Transfer (QC): 6 Car Transfer (QC): 6 Does the Patient Walk: Yes Walk 10 feet (QC): 6 Walk 50ft with 2 Turns (QC): 6 Walk 150 ft (QC): 6 Walking 10ft on Uneven Surface: 6 1 Step (curb) (QC): 6 4 Steps (QC): 6 PT Plan Treatment/Plan Treatment Plan: Continue Plan of Care Treatment Plan: Bed Mobility, Functional Activity Bubba, Functional Strength, Gait, Safety, Therapeutic Exercise, Transfers Treatment Duration: August 29, 2019 Frequency: 11 times per week Estimated Hrs Per Day: 1 hour per day Time/GCodes Time In: 945 Time Out: 1020 Total Billed Treatment Time: 35 Total Billed Treatment 1, ther ex 20', Gait 15' [place] LEIGH CPTA August 23, 2019 14:24
--- NOTE | 2019-08-23 14:34 | Physical Therapy Daily Note ---
PT Daily Note-Current Subjective Pt in bed upon arrival. Pain rated 6-7/10, nurse present for pt request of pain med. Pt agreeable to treatment. Appearance (L) knee swollen, increased stiffness per pt. Mental Status Patient Orientation: Person, Place, Situation Transfers SCALE: Activities may be completed with or without assistive devices. 8-Jniiiqjqmy-hhzmnol completes the activity by him/herself with no assistance from a helper. 5-Set-up or Clean-up Assistance-helper sets up or cleans up; patient completes a ctivity. [place] assists only prior to or following the activity. 4-Supervision or Touching Assistance-helper provides verbal cues and/or touching/steadying and/or contact guard assistance as patient completes activity. Assistance may be provided throughout the activity or intermittently. 3-Partial/Moderate Assistance-helper does LESS THAN HALF the effort. [place] lifts, holds or supports trunk or limbs, but provides less than half the effort. 2-Substantial/Maximal Assistance-helper does MORE THAN HALF the effort. [place] lifts or holds trunk or limbs and provides more than half the effort. 9-Xphhnwhag-xgwxav does ALL the effort. Patient does none of the effort to complete the activity. Or, the assistance of 2 or more helpers is required for the patient to complete the activity. If activity was not attempted, code reason: 7-Patient Refused. 9-Not Applicable-not attempted and the patient did not perform the activity before the current illness, exacerbation or injury. 10-Not Attempted due to Environmental Limitations-(lack of equipment, weather restraints, etc.). 88-Not Attempted due to Medical Conditions or Safety Concerns. Pt mod (I) with all transfers, uses well leg to hook underneath surgical side for in/out bed. Weight Bearing Full Weight Bearing Weight Bearing/Tolerated Gait Training Gait Assistive Device: FWW Pt amb with FWW and CGA x 100ft. Pt practiced heel/toe gait pattern with even stride length. Exercises Supine Ex: LE Protocol Supine Reps: 15 Treatments Pt min A for SLR. Pt AAROM 10 - 80 deg. CPM set 0-60deg (unable to increase at this time due to pain per pt) Assessment Current Status: Good Progress Pt progressing appropriately. Pt sore and limited ROM due to swelling. Pt amb with increased knee flexion and heavy reliance on UE. PT Short Term Goals Short Term Goals Time Frame: August 25, 2019 Roll Left & Right: 6 Sit to lyin Lying to sitting on side of be: 6 Sit to stand: 6 Chair/xul-dg-fctlj transfer: 6 Toilet transfer: 6 Car transfer: 6 Walk 10 feet: 5 Walk 50 feet with two turns: 5 Walk 150 feet: 5 1 step (curb): 5 PT Prison Goals Prison Goals PT School Psychologist Goals Time Frame: August 29, 2019 Roll Left & Right (QC): 6 Sit to Lying (QC): 6 Lying-Sitting on Side/Bed(QC): 6 Sit to Stand (QC): 6 Chair/Her-ue-Hvqdo Xfer(QC): 6 Toilet Transfer (QC): 6 Car Transfer (QC): 6 Does the Patient Walk: Yes Walk 10 feet (QC): 6 Walk 50ft with 2 Turns (QC): 6 Walk 150 ft (QC): 6 Walking 10ft on Uneven Surface: 6 1 Step (curb) (QC): 6 4 Steps (QC): 6 PT Plan Treatment/Plan Treatment Plan: Continue Plan of Care Treatment Plan: Bed Mobility, Functional Activity Bubba, Functional Strength, Gait, Safety, Therapeutic Exercise, Transfers Treatment Duration: August 29, 2019 Frequency: 11 times per week Estimated Hrs Per Day: 1 hour per day Time/GCodes Time In: 1330 Time Out: 1410 Total Billed Treatment Time: 40 Total Billed Treatment 1, gait x 15', Ther ex x 25' [place] LEIGH CPTA August 23, 2019 14:34
--- NOTE | 2019-08-23 15:49 | NUR ---
LILY/MARLEY visited with patient for social service consult. Plan: The patient will be discharged home with outpatient physical therapy. will be transportation home. LILY/MARLEY visited with the patient for discharge planning. He was provided with a Patient Preference Form and chose [facility] in [place], [place]. LILY/MARLEY contacted the agency and sent referral. The agency contacted the patient and he then verbalized he would rather do outpatient Physical Therapy. LILY/MARLEY contacted Outpatient at [phone] and set up an appointment for 2:00 p.m. on Saturday 08/26. LILY/MARLEY faxed The patient does not need a walker due to patient already having a walker. No further needs at this time.
[2019-08-23 16:00] VITALS: BP 114/71
--- NOTE | 2019-08-23 16:16 | NUR ---
Pastoral care visit.
--- NOTE | 2019-08-23 17:05 | Progress Note - Hospitalist ---
Subjective HPI/CC On Admission Date Seen by Provider: August 23, 2019 Time Seen by Provider: 09:35 Jose Luis Talavera is a 54-year-old male with past medical history of hypertension, obesity, osteoarthritis, who presents for a scheduled left total knee arthroplasty. He underwent the surgery today with Dr. Lira. Upon my examination postoperatively, he reports feeling well. He said there is an issue with his morphine pump but this is now been resolved. He denies any pain at this time. He denies any nausea or vomiting. He denies any fevers or chills. He denies any shortness of breath or cough. He denies any abdominal pain. He has no other complaints or concerns. Subjective/Events-last exam He says that his pain is improved today. He has not been out of bed walking. He has eaten breakfast. He denies any fevers or chills. He denies any chest pain or shortness of breath. He denies any abdominal pain, nausea, or vomiting. Objective Exam Vital Signs Vital Signs Date Time Temp Pulse Resp B/P (MAP) Pulse Ox O2 Delivery O2 Flow Rate FiO2 08/23/19 16:00 36.8 85 18 114/71 (85) 97 Room Air 08/22/19 11:40 3 Capillary Refill : Less Than 3 SecondsLess Than 3 Seconds General Appearance: No Apparent Distress, Obese Respiratory: Lungs Clear, Normal Breath Sounds, No Respiratory Distress Cardiovascular: Regular Rate, Rhythm, No Edema, No Murmur Gastrointestinal: Normal Bowel Sounds, Non Tender, Soft Extremity: No Pedal Edema, Other (Left knee immobilizer in place) Neurologic/Psychiatric: Alert, Oriented x3, No Motor/Sensory Deficits, Normal Mood/Affect Skin: Normal Color, Warm/Dry Results/Procedures Lab Laboratory Tests 08/23/19 04:55 Patient resulted labs reviewed. Imaging: Reviewed Imaging Report Assessment/Plan Assessment and Plan Assess & Plan/Chief Complaint Left knee osteoarthritis Status post total knee arthroplasty Underwent surgery with Dr. Lira 08/21 Pain regimen ordered Bowel regimen ordered Incentive spirometer ordered PT/OT Essential hypertension Blood pressures well-controlled Continue lisinopril Hydralazine as needed DVT prophylaxis: Lovenox Diagnosis/Problems Diagnosis/Problems (1) S/P total knee arthroplasty Status: Acute Qualifiers: Laterality: left Qualified Codes: Z96.652 - Presence of left artificial knee joint (2) Osteoarthritis of left knee Status: Acute Qualifiers: Osteoarthritis type: primary Qualified Codes: M17.12 - Unilateral primary osteoarthritis, left knee (3) HTN (hypertension) Status: Chronic Qualifiers: Hypertension type: essential hypertension Qualified Codes: I10 - Essential (primary) hypertension (4) Obesity Status: Chronic Qualifiers: Obesity type: due to excess calories Serious obesity comorbidity presence: with serious comorbidity Body mass index: BMI 36.0-36.9 Clinical Quality Measures DVT/VTE Risk/Contraindication: Risk Factor Score Per Nursin RFS Level Per Nursing on Admit: 4+=Very High LUZ STUART MD August 23, 2019 17:05
--- NOTE | 2019-08-23 20:41 | DISCHARGE SUMMARY ---
DATE OF SERVICE: DIAGNOSIS: Left knee primary osteoarthritis. PROCEDURE: Left total knee arthroplasty. SUMMARY: The patient is a 54-year-old gentleman who underwent a left total knee arthroplasty on the date of admission. Postoperatively, he did very well. At the time of discharge, his wound was clean and dry and no calf tenderness. Negative Joana signs. He is tolerating his diet well and tolerating pain with oral pain medication. CONDITION AT DISCHARGE: Good. DISCHARGE DIET: Regular. FOLLOWUP: In three weeks. Home physical therapy has been arranged. ACTIVITIES: Weightbearing as tolerated with assistive devices. DISCHARGE MEDICATIONS: Home medications, aspirin one per day and Percocet as needed for pain. Job ID: [id number] DocumentID: [id number] Dictated Date: 08/23/2019 15:36:23 Neurosurgery Spine Physician Date: 08/23/2019 20:40:24 Dictated By: FELY MUNOZ MD
[2019-08-23 20:44] VITALS: BP 157/75
[2019-08-24] MEDS: NS IV 1000 ML 1,000 ML IV SCH
[2019-08-24 00:31] VITALS: BP 126/78
[2019-08-24 04:00] VITALS: BP 158/69
[2019-08-24] MEDS: oxyCODONE/APAP 5/325MG (PERCOCET 5) TABLET PO PRN ×3 (04:49→11:47)
[2019-08-24 05:35] VITALS: BP 158/69
[2019-08-24] MEDS: MULTIVIT W/MINERALS TAB (THERAGRAN M) PO SCH (06:18)
[2019-08-24 06:43] LABS: HEMOGLOBIN 11.6 G/DL (13.3-17.7)
[2019-08-24] MEDS ORDERED: morphine INJ 4 MG/ML 1 ML (VIAL/SYRINGE) IVP PRN (06:45)
--- NOTE | 2019-08-24 06:45 | Progress Note ---
Standard Progress Note Progress Notes/Assess & Plan Date Seen by a Provider: August 24, 2019 Time Seen by a Provider: 06:44 Progress/Assessment & Plan post op check non complaints Radiographs--HW well positioned without fracture LLE--block in effect. 2 plus DP pulse with brisk cap refill s/p LTKA mobilize when able Final Diagnosis No complaints Vital Signs Date Time Temp Pulse Resp B/P (MAP) Pulse Ox O2 Delivery O2 Flow Rate FiO2 08/24/19 05:35 37.0 97 20 158/69 (98) 98 Room Air 08/24/19 04:00 37.0 97 20 158/69 (98) 98 Room Air 08/24/19 00:31 37.4 88 18 126/78 (94) 93 Room Air 08/24/19 00:00 36.8 08/23/19 20:44 36.8 94 18 157/75 (102) 99 Room Air 08/23/19 20:05 Room Air 08/23/19 16:00 36.8 85 18 114/71 (85) 97 Room Air 08/23/19 12:52 36.9 83 18 123/72 (89) 97 Room Air 08/23/19 09:00 Room Air 08/23/19 07:50 Room Air 08/23/19 07:37 37.0 77 18 119/72 (88) 93 Room Air I & O 08/24/19 07:00 Intake Total 4370 ml Balance 4370 ml Laboratory Tests Test 08/24/19 05:39 Range/Units LLE--incision clean and dry. no calf tenderness. Neg Joana's s/p LTKA doing well DC after PT today FELY MUNOZ MD August 24, 2019 06:45
[2019-08-24] MEDS: lisINopril 10 MG (PRINIVIL) TABLET PO SCH (07:27)
[2019-08-24] MEDS: ASPIRIN E.C. 81 MG (ECOTRIN) TAB PO SCH (07:27)
[2019-08-24] MEDS: ENOXAPARIN 30 MG/0.3 ML (LOVENOX) SYR SC SCH (07:27)
[2019-08-24] MEDS: SENNA W/DOCUSATE (SENOKOT S) TABLET PO SCH (07:27)
[2019-08-24 07:39] VITALS: BP 135/66
--- NOTE | 2019-08-24 10:11 | Physical Therapy Daily Note ---
PT Daily Note-Current Subjective Patient agrees to PT. Reports he is going home this a.m. Pain Numeric Pain Scale: 7 Location: Left Location Body Site: Knee Pain Description: Acute Mental Status Patient Orientation: Normal For Age Transfers SCALE: Activities may be completed with or without assistive devices. 0-Ribktcnngx-lddcmrs completes the activity by him/herself with no assistance from a helper. 5-Set-up or Clean-up Assistance-helper sets up or cleans up; patient completes activity. [place] assists only prior to or following the activity. 4-Supervision or Touching Assistance-helper provides verbal cues and/or touching/steadying and/or contact guard assistance as patient completes activity. Assistance may be provided throughout the activity or intermittently. 3-Partial/Moderate Assistance-helper does LESS THAN HALF the effort. [place] lifts, holds or supports trunk or limbs, but provides less than half the effort. 2-Substantial/Maximal Assistance-helper does MORE THAN HALF the effort. [place] lifts or holds trunk or limbs and provides more than half the effort. 2-Ezodzeqob-lbtdll does ALL the effort. Patient does none of the effort to complete the activity. Or, the assistance of 2 or more helpers is required for the patient to complete the activity. If activity was not attempted, code reason: 7-Patient Refused. 9-Not Applicable-not attempted and the patient did not perform the activity before the current illness, exacerbation or injury. 10-Not Attempted due to Environmental Limitations-(lack of equipment, weather restraints, etc.). 88-Not Attempted due to Medical Conditions or Safety Concerns. Roll Left & Right (QC): 6 Lying to Sitting/Side of Bed(Q: 6 Sit to Stand (QC): 6 Chair/Ntm-xg-Kqalk Xfer(QC): 6 Weight Bearing Full Weight Bearing Weight Bearing/Tolerated Gait Training Does the Patient Walk?: Yes Distance: 200' x 2 Walk 10 feet (QC): 6 Walk 50 ft with 2 Turns(QC): 6 Walk 150 ft (QC): 6 Gait Assistive Device: FWW slow, antalgic Stair Training Stair Training: Handrails/: 1 handrail, uses walker #of Steps: 3 1 Step (curb) (QC): 5 Stairs: Pattern: Step to Exercises Supine Ex: Ankle pumps, Quad Set, Heel Slides, Straight leg raise Supine Reps: 15 Seated Therapy Exercises: Long arc quads Seated Reps: 15 Assessment Patient tolerated treatment well and is up in recliner with needs met. Patient progressing with treatment plan and has HEP to follow at home upon dismissal. PT Short Term Goals Short Term Goals Time Frame: August 25, 2019 Roll Left & Right: 6 Sit to lyin Lying to sitting on side of be: 6 Sit to stand: 6 Chair/vnw-gi-qoqkj transfer: 6 Toilet transfer: 6 Car transfer: 6 Walk 10 feet: 5 Walk 50 feet with two turns: 5 Walk 150 feet: 5 1 step (curb): 5 PT [facility]cf Goals Perinatal Breastfeeding Assistant Goals PT Chcf Goals Time Frame: August 29, 2019 Roll Left & Right (QC): 6 Sit to Lying (QC): 6 Lying-Sitting on Side/Bed(QC): 6 Sit to Stand (QC): 6 Chair/Qke-qz-Bnwsg Xfer(QC): 6 Toilet Transfer (QC): 6 Car Transfer (QC): 6 Does the Patient Walk: Yes Walk 10 feet (QC): 6 Walk 50ft with 2 Turns (QC): 6 Walk 150 ft (QC): 6 Walking 10ft on Uneven Surface: 6 1 Step (curb) (QC): 6 4 Steps (QC): 6 PT Plan Treatment/Plan Treatment Plan: Discontinue PT, goals met Treatment Plan: Bed Mobility, Functional Activity Bubba, Functional Strength, Gait, Safety, Therapeutic Exercise, Transfers Treatment Duration: August 29, 2019 Frequency: 11 times per week Estimated Hrs Per Day: 1 hour per day Time/GCodes Time In: 918 Time Out: 941 Total Billed Treatment Time: 23 Total Billed Treatment 1 visit EX 15 min GT 8 min MARISSA AVILEZ PT August 24, 2019 10:11
--- NOTE | 2019-08-24 11:43 | Occ Therapy Progress Note ---
Therapy Progress Note Pt seen in bed/ asleep, pt states he is d/c'ing home today. Pt denies any questions and denies ADLs at this time as he is not leaving until after lunch. Per notes pt demonstrated ability to complete LB dressing tasks with AE, pt denies questions on AE. All needs met, call light in reach. 1, Visit ([id number]) SUNDEEP IRAHETA OTR August 24, 2019 11:43
[2019-08-24 12:35] VITALS: BP 135/66
== END 2019-08-24 12:43 | disposition home or self-care (01) | DRG 470 ==
LOC: 4TH 07:10 → SURG 07:11 → 4TH 12:10
PROVIDERS: ADMIT Orthopaedic Surgery; ATTEND Orthopaedic Surgery
PROC: 0SRD0J9 Replacement of Left Knee Joint with Synthetic Substitute, Cemented, Open Approach (ICD-10-PCS; principal; 2019-08-22 09:22)
DX: M17.12 Unilateral primary osteoarthritis, left knee (principal); I10 Essential (primary) hypertension; E66.9 Obesity, unspecified; Z68.36 Body mass index [BMI] 36.0-36.9, adult; Z87.891 Personal history of nicotine dependence; Z85.828 Personal history of other malignant neoplasm of skin; Z87.442 Personal history of urinary calculi
CPT/HCPCS: 36415; 73560; 85014; 85018; 85025; 86850; 86900; 86901; 94664